=== PATIENT | female | born 1930 | race Caucasian/White ===

== ENCOUNTER 2016-11-08 23:57 | Inpatient (IN) | payer MEDICARE, OTHER ==
[~2016-11-08] VITALS: Ht 167.6 cm; Wt 91.2 kg
[2016-11-09] VITALS (15 sets, daily range): BP systolic 102–156; BP diastolic 42–85
--- OUTSIDE RECORDS SUMMARY | 2016-11-09 00:07 | External Medical Summary Rpt ---
Author Author [employer] Organization [employer] Address Unknown Phone Unavailable Purpose Continuity of Care Document - through 2016
--- OUTSIDE RECORDS SUMMARY | 2016-11-09 00:07 | External Medical Summary Rpt ---
Author Author SONDRA Address Unknown Phone [email or web address] Purpose Continuity of Care Document - through 2016
--- OUTSIDE RECORDS SUMMARY | 2016-11-09 00:07 | External Medical Summary Rpt ---
Author Author SONDRA Address Unknown Phone [email or web address] Purpose Continuity of Care Document - through 2016
--- OUTSIDE RECORDS SUMMARY | 2016-11-09 00:07 | External Medical Summary Rpt ---
Demographics Preferred Language Yakut Marital Status Unknown Mormon Affiliation Unknown Race Unknown Ethnic Group Unknown Author SONDRA Hall Address Unknown Phone Immunization No patient found.
--- OUTSIDE RECORDS SUMMARY | 2016-11-09 00:07 | External Medical Summary Rpt ---
Demographics Preferred Language Urdu Marital Status Unknown Baptism Affiliation Unknown Race Unknown Ethnic Group Unknown Author SONDRA Hall Address Unknown Phone Immunization No patient found.
[2016-11-09] MEDS ORDERED: SPECTRAVITE SE1 EACH PO (00:27)
[2016-11-09] MEDS ORDERED: DIAZEPAM5 MG PO (00:27)
[2016-11-09 00:28] LABS: ARTERIAL PO2 85.8 MMHG (80-100)
[2016-11-09 00:29] LABS: ALLEN'S TEST Y; ARTERIAL ABE 12.7 MMOL/L (-2.4-+2.3); ARTERIAL TCO2 43.2 MMOL/L (23-27); OXYGEN 2
[2016-11-09] MEDS ORDERED: SINGULAIR10 MG PO (00:29)
[2016-11-09] MEDS ORDERED: LISINOPRIL 10MG10 MG PO (00:31)
[2016-11-09] MEDS ORDERED: SIMVASTATIN40 MG PO (00:32)
[2016-11-09] MEDS ORDERED: [UNRECOGNIZED DRUG - CODE] PO (00:33)
--- NOTE | 2016-11-09 00:35 | Emergency Room Report ---
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 N Clinical Suspician of Infection? N Mental Status: 1 - Regular (Normal Baseline) Sepsis Risk:Possible Sepsis Risk Have you (or family members/close friends) recently traveled outside the [place]? N If Yes, where/when: Have you had exposure to infectious disease within the past month? N TB? Other? Specify: Source patient, RN notes reviewed, family, RN/MD Exam Limitations no limitations Comment This is an 85-year-old female patient arriving to the emergency room with shortness of breath for the past 2 days, associated with nonproductive cough. Patient has any shots of breath, denies any chest pain. Symptoms appeared to be worse with exertion. Shows hospitalist on multiple rounds in the past for similar symptoms and diagnosed with chronic obstructive pulmonary disease exacerbation. She appears more lethargic and somewhat confused, per family. ALLERGIES Coded Allergies: No Known Drug Allergies (NKDA) (11/09/16) Home Medications Reported Medications Multivitamin W/Iron, Minerals (Spectravite Senior) 1 EACH PO DAILY LISINOPRIL (Lisinopril) 10 MG PO DAILY Diazepam (Diazepam 5MG) 5 MG PO BID Montelukast Sodium (Singulair) 10 MG PO QHS Simvastatin (Simvastatin 40MG Tab) 40 MG PO DAILY THEOPHYLLINE ANHYDROUS (Beni-24) 200 MG PO BID History Medical History General CAD? No Angina: No AR: No Hypertension? Yes Hyperlipidemia? Yes CHF? Yes DVT? No PE? No COPD? Yes Asthma? Yes Anemia? No GERD? No Gastric ulcers? No GI Bleed? No Hernia? No Thyroid Problems? No Hypothyroidism? No CVA? No Seizures? No Diabetes? No Renal Insuffiency? No End Stage Renal Disease? No UTI? No Stones? No BPH? No GB Disease: No Nephritic Syndrome? No Asplenia? No Hepatitis? No Sickle Cell Disease? No Arthritis? Yes Migraines? No Cataracts? Yes Glaucoma? Yes MRSA? No HIV? No TB? No Anxiety? Yes Depression? No Cancer? No Immunization Hx DT/Tetanus Unknown Surgical Hx Previous Surgery?Y Social History Smoking Hx Smoker: Never Smoker Tobacco: No Are you/the child exposed to second-hand smoke: No Alcohol Alcohol: No Review of Systems All Other Systems Reviewed and Negative Respiratory shortness of breath Physical Exam Vital Signs Vital Signs Date Time Temp Pulse Resp B/P Pulse O2 O2 Flow FiO2 Ox Delivery Rate 11/09 0421 2 11/09 0400 53 20 111/64 98 OXYGEN 11/09 0306 98.1 56 20 115/79 99 OXYGEN 2 11/09 0259 55 11/09 0259 99 OXYGEN 11/09 0251 98.3 55 30 119/60 11/09 0203 98.3 55 30 119/60 99 11/09 0137 55 30 119/60 99 2 11/09 0112 2 11/09 0103 68 30 136/80 100 11/09 0030 86 36 175/100 85 2 11/09 0016 77 11/09 0001 98.3 91 36 156/85 100 2 General Appearance normal appearance, WD/WN, moderate distress Respiratory Status Yes: respiratory distress (mild), trachea midline, chest symmetrical, non tender chest. Lung Sounds bilateral: wheezing. Cardiovascular normal exam, regular rate/rhythm, no peripheral edema, no gallop, no JVD, no murmur, no rub, normal peripheral pulses Gastrointestinal normal bowel sounds, normal exam, non tender, soft, no organomegaly Extremities non-tender, normal range of motion, normal inspection Neurologic alert, dowel maker II-XII nml as tested, normal exam, oriented x 3 Mental status normal mood/affect Skin intact, normal color, warm/dry Medical Decision Making LABS/Meds/Orders Pt receiving controlled substance in ED? No Comment 01:15am- case d/w Dr Nader Love, advised patient's presentation, workup. Dr. Love labile with management so far, including Plavix, heparin, nitrates and aspirin. 01:20am-case d/w Dr Gee covering for Dr Walton, agreeable with admission. Care transferred to Dr. Gee/Dr. Love at this time. I will write temporary, bridge, admission orders as per hospital policy. Upon patient's arrival to the floor unit nurse will contact PCP and dive superintendent in order to obtain full, in patient admission orders. Results/Orders Laboratory Tests 11/09/16 0305: Creatine Kinase 103, CK-MB (CK-2) Rel Index 3.4, CK and CKMB Interp 3.5, Troponin I 0.95 H, Triglycerides 76, Cholesterol 130, LDL Cholesterol 25.8, VLDL Cholesterol 15.2, HDL Cholesterol 89.0 H 11/09/16 0026: ABG pH 7.24 *L, ABG pCO2 (Temp Corrct 96.6 H, ABG pO2 (Temp Correct 85.8, ABG HCO3 40.2 H, ABG Total CO2 43.2 H, ABG O2 Sat (Calculated) 94.7, ABG Base Excess 12.7 H, Darinel Test Y, Blood Gas Comments R/R 11/09/16 001: Hemoglobin A1c 6.6 11/09/1614: TSH 0.85, Free T4 Index 3.8 L, Thyroxine (T4) 4.5 L, T3 Uptake 34 11/09/16 001: Sodium 143, Potassium 4.8, Chloride 101, Carbon Dioxide 43 *H, BUN 26 H, Creatinine 1.0, Estimated Creat Clear 52, Estimated GFR (MDRD) 53 L, Glucose 201 H, Calcium 9.5, Total Bilirubin 0.4, AST 22, ALT 22, Alkaline Phosphatase 74, Creatine Kinase 63, CK and CKMB Interp 3.9 H, Troponin I 0.82 H, Total Protein 7.7, Albumin 3.7, Globulin 4.0 H, Albumin/Globulin Ratio 0.9 L, WBC 10.6, RBC 4.68, Hgb 13.7, Hct 44.5, MCV 95.0, RDW 18.0 H, Plt Count 204, Gran % 77.6, Gran # 8.2 H, Lymphocytes % 17.3, Monocytes % 5.1, Lymphocytes # 1.8, Monocytes # 0.5, PUBS MCHC 30.8 L, MCH 29.3 Current Medication Orders Sig/Felipe Start time Last Medication Dose Route Stop Time Status Admin Ceftriaxone Sodium 1 GM 0100 11/10 010 AC 11/09 Sodium Chloride 50 ML IV 2343 Montelukast Sodium 10 MG QHS 11/09 2099 AC 11/09 PO 2100 Clopidogrel Bisulfate 75 MG DAILY 11/09 09 AC 11/10 PO 0903 Diazepam 5 MG BID 11/09 09 AC 11/10 PO 0902 Enoxaparin Sodium 90 MG BID 11/09 09 AC 11/10 SC 0903 Lisinopril 10 MG DAILY 11/09 09 AC 11/10 PO 0903 Methylprednisolone 60 MG Q12 11/09 09 AC 11/10 Sodium Succinate IV 0903 Sodium Chloride 10 ML PRN PRN 11/09 0015 DC IV 11/10 0005 Orders Procedure Date/time Status ECHO ADULT 11/10 08 Active DIET-NOTHING BY MOUTH 11/09 B Complete CARDIAC ENZYMES 11/09 09 Complete PT ON HOME OXYGEN QUERY NOTICE 11/10 315 Active ADMITTED PT IS ACTUALLY IN BED 11/09 031 Active ARTERIAL BLOOD GAS REQUEST 11/09 030 Active LIPID PROFILE 11/09 030 Complete CARDIAC ENZYMES 11/09 0300 Complete RT BIPAP, Initial Setup/Change 11/09 025 Active RT BIPAP, Monitor/Maintain 11/09 0252 Active Decision to admit 11/09 0150 Active THYROID PANEL 2 (WITH TSH) 11/09 0118 Complete GLYCOHEMOGLOBIN (A1C) 11/09 0118 Complete RT Aerosol Treatment, Provide 11/09 0050 Active RESP THERAPY REQUEST (GENERAL) 11/09 0029 Active ARTERIAL BLOOD GAS REQUEST 11/09 0007 Active ELECTROCARDIOGRAM REQUEST 11/09 0006 Active RT REQUEST DUONEB 11/09 0006 Active IV SALINE LOCK 11/09 0006 Active OXYGEN PER NURSE 11/09 0006 Active 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 11/09 0006 Active TROPONIN I 11/09 0006 Complete CPK 11/09 0006 Complete COMPLETE METABOLIC PANEL 11/09 0006 Complete CKMB 11/09 0006 Complete CBC WITH AUTO DIFF 11/09 0006 Complete ADMIT PATIENT 11/09 UNK Active 12 LEAD EKG-BESSON (INITIAL) 11/09 UNK Active PULSE OXIMETRY REQUEST 11/[address] CHEST W/PE PROTOCOL REQ 11/09 UNK Complete VITAL SIGNS 11/09 UNK Active STITCHER FEEDER 11/09 UNK Active POM NURSE PAULINO SALINAS ORDER 11/09 UNK Active CODE STATUS 11/09 UNK Active PATIENT ACTIVITY ORDER 11/09 UNK Active SPECIALTY CLINIC PHYS CONSULT 11/09 UNK Active CM/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 of ischemic chgs, no ectopy, normal QRS, normal [place], no EKG for comparison, non-spec. ST/Twave chgs, ST elevation, ST depression, LBBB, RBBB, ectopy, abnormal Q waves XRAY/CT/US XRAY/CT/US XRAY chest XR interpretation by discussed w/radiologist Xray Results no infiltrates, normal heart size, normal lung inflation krysten Departure Departure Time of Disposition 0034 Disposition Still a Patient Clinical Impression Primary Impression: CO2 narcosis Secondary Impressions: Acute respiratory acidosis, COPD exacerbation, NSTEMI ( non-ST elevated myocardial infarction) Condition STABLE ED Critical Care Critical Care No at 131
--- NOTE | 2016-11-09 00:35 | Emergency Room Report ---
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 N Clinical Suspician of Infection? N Mental Status: 1 - Regular (Normal Baseline) Sepsis Risk:Possible Sepsis Risk Have you (or family members/close friends) recently traveled outside the [place]? N If Yes, where/when: Have you had exposure to infectious disease within the past month? N TB? Other? Specify: Source patient, RN notes reviewed, family, RN/MD Exam Limitations no limitations Comment This is an 85-year-old female patient arriving to the emergency room with shortness of breath for the past 2 days, associated with nonproductive cough. Patient has any shots of breath, denies any chest pain. Symptoms appeared to be worse with exertion. Shows hospitalist on multiple rounds in the past for similar symptoms and diagnosed with chronic obstructive pulmonary disease exacerbation. She appears more lethargic and somewhat confused, per family. ALLERGIES Coded Allergies: No Known Drug Allergies (NKDA) (11/09/16) Home Medications Reported Medications Multivitamin W/Iron, Minerals (Spectravite Senior) 1 EACH PO DAILY LISINOPRIL (Lisinopril) 10 MG PO DAILY Diazepam (Diazepam 5MG) 5 MG PO BID Montelukast Sodium (Singulair) 10 MG PO QHS Simvastatin (Simvastatin 40MG Tab) 40 MG PO DAILY THEOPHYLLINE ANHYDROUS (Ebni-24) 200 MG PO BID History Medical History General CAD? No Angina: No RI: No Hypertension? Yes Hyperlipidemia? Yes CHF? Yes DVT? No PE? No COPD? Yes Asthma? Yes Anemia? No GERD? No Gastric ulcers? No GI Bleed? No Hernia? No Thyroid Problems? No Hypothyroidism? No CVA? No Seizures? No Diabetes? No Renal Insuffiency? No End Stage Renal Disease? No UTI? No Stones? No BPH? No GB Disease: No Nephritic Syndrome? No Asplenia? No Hepatitis? No Sickle Cell Disease? No Arthritis? Yes Migraines? No Cataracts? Yes Glaucoma? Yes MRSA? No HIV? No TB? No Anxiety? Yes Depression? No Cancer? No Immunization Hx DT/Tetanus Unknown Surgical Hx Previous Surgery?Y Social History Smoking Hx Smoker: Never Smoker Tobacco: No Are you/the child exposed to second-hand smoke: No Alcohol Alcohol: No Review of Systems All Other Systems Reviewed and Negative Respiratory shortness of breath Physical Exam Vital Signs Vital Signs Date Time Temp Pulse Resp B/P Pulse O2 O2 Flow FiO2 Ox Delivery Rate 11/09 0421 2 11/09 0400 53 20 111/64 98 OXYGEN 11/09 0306 98.1 56 20 115/79 99 OXYGEN 2 11/09 0259 55 11/09 0259 99 OXYGEN 11/09 0251 98.3 55 30 119/60 11/09 0203 98.3 55 30 119/60 99 11/09 0137 55 30 119/60 99 2 11/09 0112 2 11/09 0103 68 30 136/80 100 11/09 0030 86 36 175/100 85 2 11/09 0016 77 11/09 0001 98.3 91 36 156/85 100 2 General Appearance normal appearance, WD/WN, moderate distress Respiratory Status Yes: respiratory distress (mild), trachea midline, chest symmetrical, non tender chest. Lung Sounds bilateral: wheezing. 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 No Comment 01:15am- case d/w Dr Nader Love, advised patient's presentation, workup. Dr. Love labile with management so far, including Plavix, heparin, nitrates and aspirin. 01:20am-case d/w Dr Gee covering for Dr Walton, agreeable with admission. Care transferred to Dr. Gee/Dr. Love at this time. I will write temporary, bridge, admission orders as per hospital policy. Upon patient's arrival to the floor unit nurse will contact PCP and assistant surveyor in order to obtain full, in patient admission orders. Results/Orders Laboratory Tests 11/09/16 0305: Creatine Kinase 103, CK-MB (CK-2) Rel Index 3.4, CK and CKMB Interp 3.5, Troponin I 0.95 H, Triglycerides 76, Cholesterol 130, LDL Cholesterol 25.8, VLDL Cholesterol 15.2, HDL Cholesterol 89.0 H 11/09/16 0026: ABG pH 7.24 *L, ABG pCO2 (Temp Corrct 96.6 H, ABG pO2 (Temp Correct 85.8, ABG HCO3 40.2 H, ABG Total CO2 43.2 H, ABG O2 Sat (Calculated) 94.7, ABG Base Excess 12.7 H, Darinel Test Y, Blood Gas Comments R/R 11/09/16 001: Hemoglobin A1c 6.6 11/09/1614: TSH 0.85, Free T4 Index 3.8 L, Thyroxine (T4) 4.5 L, T3 Uptake 34 11/09/16 001: Sodium 143, Potassium 4.8, Chloride 101, Carbon Dioxide 43 *H, BUN 26 H, Creatinine 1.0, Estimated Creat Clear 52, Estimated GFR (MDRD) 53 L, Glucose 201 H, Calcium 9.5, Total Bilirubin 0.4, AST 22, ALT 22, Alkaline Phosphatase 74, Creatine Kinase 63, CK and CKMB Interp 3.9 H, Troponin I 0.82 H, Total Protein 7.7, Albumin 3.7, Globulin 4.0 H, Albumin/Globulin Ratio 0.9 L, WBC 10.6, RBC 4.68, Hgb 13.7, Hct 44.5, MCV 95.0, RDW 18.0 H, Plt Count 204, Gran % 77.6, Gran # 8.2 H, Lymphocytes % 17.3, Monocytes % 5.1, Lymphocytes # 1.8, Monocytes # 0.5, PUBS MCHC 30.8 L, MCH 29.3 Current Medication Orders Sig/Felipe Start time Last Medication Dose Route Stop Time Status Admin Ceftriaxone Sodium 1 GM 0100 11/10 010 AC 11/09 Sodium Chloride 50 ML IV 2343 Montelukast Sodium 10 MG QHS 11/09 2099 AC 11/09 PO 2100 Clopidogrel Bisulfate 75 MG DAILY 11/09 09 AC 11/10 PO 0903 Diazepam 5 MG BID 11/09 09 AC 11/10 PO 0902 Enoxaparin Sodium 90 MG BID 11/09 09 AC 11/10 SC 0903 Lisinopril 10 MG DAILY 11/09 09 AC 11/10 PO 0903 Methylprednisolone 60 MG Q12 11/09 09 AC 11/10 Sodium Succinate IV 0903 Sodium Chloride 10 ML PRN PRN 11/09 0015 DC IV 11/10 0005 Orders Procedure Date/time Status ECHO ADULT 11/10 08 Active DIET-NOTHING BY MOUTH 11/09 B Complete CARDIAC ENZYMES 11/09 09 Complete PT ON HOME OXYGEN QUERY NOTICE 11/10 315 Active ADMITTED PT IS ACTUALLY IN BED 11/09 031 Active ARTERIAL BLOOD GAS REQUEST 11/09 030 Active LIPID PROFILE 11/09 030 Complete CARDIAC ENZYMES 11/09 0300 Complete RT BIPAP, Initial Setup/Change 11/09 025 Active RT BIPAP, Monitor/Maintain 11/09 0252 Active Decision to admit 11/09 0150 Active THYROID PANEL 2 (WITH TSH) 11/09 0118 Complete GLYCOHEMOGLOBIN (A1C) 11/09 0118 Complete RT Aerosol Treatment, Provide 11/09 0050 Active RESP THERAPY REQUEST (GENERAL) 11/09 0029 Active ARTERIAL BLOOD GAS REQUEST 11/09 0007 Active ELECTROCARDIOGRAM REQUEST 11/09 0006 Active RT REQUEST DUONEB 11/09 0006 Active IV SALINE LOCK 11/09 0006 Active OXYGEN PER NURSE 11/09 0006 Active LEAD ASSISTANT MANAGER 11/09 0006 Active TROPONIN I 11/09 0006 Complete CPK 11/09 0006 Complete COMPLETE METABOLIC PANEL 11/09 0006 Complete CKMB 11/09 0006 Complete CBC WITH AUTO DIFF 11/09 0006 Complete ADMIT PATIENT 11/09 UNK Active 12 LEAD EKG-BESSON (INITIAL) 11/09 UNK Active PULSE OXIMETRY REQUEST 11/[address] CHEST W/PE PROTOCOL REQ 11/09 UNK Complete VITAL SIGNS 11/09 UNK Active INSTITUTION DIRECTOR 11/09 UNK Active POM NURSE PAULINO SALINAS ORDER 11/09 UNK Active CODE STATUS 11/09 UNK Active PATIENT ACTIVITY ORDER 11/09 UNK Active SPECIALTY CLINIC PHYS CONSULT 11/09 UNK Active 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 of ischemic chgs, no ectopy, normal QRS, normal [place], no EKG for comparison, non-spec. ST/Twave chgs, ST elevation, ST depression, LBBB, RBBB, ectopy, abnormal Q waves XRAY/CT/US XRAY/CT/US XRAY chest XR interpretation by discussed w/radiologist Xray Results no infiltrates, normal heart size, normal lung inflation krysten Departure Departure Time of Disposition 0034 Disposition Still a Patient Clinical Impression Primary Impression: CO2 narcosis Secondary Impressions: Acute respiratory acidosis, COPD exacerbation, NSTEMI ( non-ST elevated myocardial infarction) Condition STABLE ED Critical Care Critical Care No at 1318
[2016-11-09 00:41] LABS: HEMOGLOBIN 13.7 g/dL (12.2-16.2)
[2016-11-09 00:42] LABS: LYMPH # 1.8 K/mm3 (0.7-4.5); LYMPH % 17.3 % (10-50.0)
--- OUTSIDE RECORDS SUMMARY | 2016-11-09 01:06 | External Medical Summary Rpt ---
Author Author , SONDRA AMARO Address Unknown Phone [email or web address] Purpose Continuity of Care Document - 11-09-2016 through 2016 Results Labs Lab Lab Date Result Refere Interp Status Commen Order Detail nces retati t Range on Gas panel in Arterial blood (11-09-2016 00:26) Arteria Y complet l 017 ed patency 00:26 Wrist artery --pre arteria l punctur e SOURCE R/R complet 017 ed 00:26
--- OUTSIDE RECORDS SUMMARY | 2016-11-09 01:06 | External Medical Summary Rpt ---
Author Author , SONDRA AMARO Address Unknown Phone [email or web address] Purpose Continuity of Care Document - 11-09-2016 through 2016 Results Labs Lab Lab Date Result Refere Interp Status Commen Order Detail nces retati t Range on Gas panel in Arterial blood (11-09-2016 00:26) Arteria Y complet l 017 ed patency 00:26 Wrist artery --pre arteria l punctur e SOURCE R/R complet 017 ed 00:26
--- OUTSIDE RECORDS SUMMARY | 2016-11-09 01:07 | External Medical Summary Rpt ---
Demographics Preferred Language Cambodian Marital Status Unknown Synagogue Affiliation Unknown Race Unknown Ethnic Group Unknown Author Author SONDRA Address Unknown Phone Immunization Unable to retrieve immunization data due to connection failure with Immunization Registry. Please try again later.
--- OUTSIDE RECORDS SUMMARY | 2016-11-09 01:07 | External Medical Summary Rpt ---
Demographics Preferred Language South African Marital Status Unknown Moravian Affiliation Unknown Race Unknown Ethnic Group Unknown Author Author SONDRA Address Unknown Phone Immunization Unable to retrieve immunization data due to connection failure with Immunization Registry. Please try again later.
--- OUTSIDE RECORDS SUMMARY | 2016-11-09 01:08 | External Medical Summary Rpt ---
Author Author SONDRA Ronnell, [employer] Organization [employer] Address Unknown Phone Unavailable Results Gas panel in Arterial blood Observa Value Referen Units Interpr Notes Date tion ce etation Range Base -2.4-+2.3 MMOL/L High No Nov 09 excess in informati 2017 Arterial on in 12:26 AM blood source data Arteria Y No No No No Nov 09 l informa informa informa informa 2016 patency tion in tion in tion in tion in 12:26 Wrist source source source source AM artery data data data data --pre arteria l punctur e Bicarbona 22.0 - MMOL/L High No Nov 09 te 26.0 informati 2016 [Moles/vo on in 12:26 AM lume] in source Arterial data blood Oxygen No No No No Nov 09 content informati informati informati informati 2017 in on in on in on in on in 12:26 AM Arterial source source source source blood data data data data Carbon 35.0 - MMHG High Nov 09 dioxide 45.0 2016 [Partial CRITICAL 12:26 AM pressure] RESULTS in Arterial RESU blood LTS CALLED TO: DR MCELROY 11/09/16 0028 Austin Durbin pH of 7.35 - MMOL/L Low alert No Nov 09 Arterial 7.45 informati 2017 blood on in 12:26 AM source data Oxygen 80 - 100 MMHG Normal No Nov 09 [Partial informati 2017 pressure] on in 12:26 AM in source Arterial data blood Oxygen 90 - 100 % Normal No Nov 09 saturatio informati 2017 n.calcula on in 12:26 AM john from source oxygen data partial pressure in Arterial blood SOURCE R/R No No No No Nov 09 informa informa informa informa 2017 tion in tion in tion in tion in 12:26 source source source source AM data data data data Carbon 23 - 27 MMOL/L High No Nov 09 dioxide, informati 2017 total on in 12:26 AM [Moles/vo source lume] in data Arterial blood Creatine kinase.MB [Mass/volume] in Serum or Plasma Observa Value Referen Units Interpr Notes Date tion ce etation Range Creatine 0.0 - 3.6 ng/mL High No Nov 09 kinase.MB informati 2017 on in 12:15 AM [Mass/vol source ume] in data Serum or Plasma Comprehensive metabolic 2000 panel in Serum or Plasma Observa Value Referen Units Interpr Notes Date tion ce etation Range Albumin/G 1.1 - 1.8 No Low No Nov 09 lobulin informati informati 2016 [Mass on in on in 12:15 AM ratio] in source source Serum or data data Plasma Albumin 3.4 - 5.0 gm/dL Normal No Nov 09 [Mass/vol informati 2017 ume] in on in 12:15 AM Serum or source Plasma data Alkaline 46 - 116 U/L Normal No Nov 09 phosphata informati 2016 se on in 12:15 AM [Enzymati source c data activity/ volume] in Serum or Plasma Bilirubin 0.2 - 1.0 mg/dL Normal No Nov 09 .total informati 2016 [Mass/vol on in 12:15 AM ume] in source Serum or data Plasma Urea 7 - 18 mg/dL High No Nov 09 nitrogen informati 2016 [Mass/vol on in 12:15 AM ume] in source Serum or data Plasma Calcium 8.5 - mg/dL Normal No Nov 09 [Mass/vol 10.1 informati 2016 ume] in on in 12:15 AM Serum or source Plasma data Chloride 98 - 107 mmoL/L Normal No Nov 09 [Moles/vo informati 2017 lume] in on in 12:15 AM Serum or source Plasma data Carbon 21.0 - mmoL/L High Nov 09 dioxide, 32.0 alert NOTIFICAT 2017 total ION 12:15 AM [Moles/vo RESULT lume] in 11/09 Serum or / 0102 Plasma Ruby Leonardo Creatinin 0.55 - mg/dL Normal No Nov 09 e 1.02 informati 2017 [Mass/vol on in 12:15 AM ume] in source Serum or data Plasma Creatinin 50 - 200 ML/MIN Normal No Nov 09 e renal informati 2017 clearance on in 12:15 AM source predicted data by Cockcroft -Gault formula Estimated 59- ML/MIN Low REFERENCE Nov 09 RANGE: 2017 glomerula >60 12:15 AM r ML/MIN/1. filtratio 73 SQUARE n rate METERSIf (GF this patient is -A merican, then multiply theresult by 1.210. Globulin 1.3 - 3.2 gm/dL High No Nov 09 [Mass/vol informati 2016 ume] in on in 12:15 AM Serum source data Glucose 74 - 106 mg/dL High No Nov 09 [Mass/vol informati 2017 ume] in on in 12:15 AM Serum or source Plasma data Potassium 3.5 - 5.1 mmoL/L Normal No Nov 09 inform2016 [Moles/vo on in 12:15 AM lume] in source Serum or data Plasma Sodium 136 - 145 mmoL/L Normal No Nov 09 [Moles/vo informati 2016 lume] in on in 12:15 AM Serum or source Plasma data Aspartate 15 - 37 U/L Normal No Nov 09 inform2016 aminotran on in 12:15 AM sferase source [Enzymati data c activity/ volume] in Serum or Plasma Alanine 12 - 78 U/L Normal No Nov 09 aminotran inform2016 sferase on in 12:15 AM [Enzymati source c data activity/ volume] in Serum or Plasma Protein 6.4 - 8.2 gm/dL Normal No Nov 09 [Mass/vol informati 2016 ume] in on in 12:15 AM Serum or source Plasma data Creatine kinase [Enzymatic activity/volume] in Serum or Plasma Observa Value Referen Units Interpr Notes Date tion ce etation Range Creatine 26 - 192 U/L Normal No Nov 09 kinase informati 2016 [Enzymati on in 12:15 AM c source activity/ data volume] in Serum or Plasma Troponin I.cardiac [Mass/volume] in Serum or Plasma Observa Value Referen Units Interpr Notes Date tion ce etation Range Troponin 0.00 - ng/mL High Nov 09 I.cardiac 0.06 2017 CRITICAL 12:15 AM [Mass/vol RESULTS ume] in Serum or RESU Plasma LTS CALLED TO: Doug ORLANDO TECH11/09 0103 Ruby Leonardo hn> 0.5 IS CONSISTEN T WITH MYOCARDIA L ISCHEMIA OR INFARCTIO N Creatine kinase.MB [Mass/volume] in Serum or Plasma Observa Value Referen Units Interpr Notes Date tion ce etation Range Creatine 0.0 - 3.6 ng/mL High No Nov 09 kinase.MB informati 2017 on in 12:15 AM [Mass/vol source ume] in data Serum or Plasma Comprehensive metabolic 2000 panel in Serum or Plasma Observa Value Referen Units Interpr Notes Date tion ce etation Range Albumin/G 1.1 - 1.8 No Low No Nov 09 lobulin informati informati 2016 [Mass on in on in 12:15 AM ratio] in source source Serum or data data Plasma Albumin 3.4 - 5.0 gm/dL Normal No Nov 09 [Mass/vol informati 2017 ume] in on in 12:15 AM Serum or source Plasma data Alkaline 46 - 116 U/L Normal No Nov 09 phosphata informati 2016 se on in 12:15 AM [Enzymati source c data activity/ volume] in Serum or Plasma Bilirubin 0.2 - 1.0 mg/dL Normal No Nov 09 .total informati 2016 [Mass/vol on in 12:15 AM ume] in source Serum or data Plasma Urea 7 - 18 mg/dL High No Nov 09 nitrogen informati 2016 [Mass/vol on in 12:15 AM ume] in source Serum or data Plasma Calcium 8.5 - mg/dL Normal No Nov 09 [Mass/vol 10.1 informati 2017 ume] in on in 12:15 AM Serum or source Plasma data Chloride 98 - 107 mmoL/L Normal No Nov 09 [Moles/vo informati 2017 lume] in on in 12:15 AM Serum or source Plasma data Carbon 21.0 - mmoL/L High Nov 09 dioxide, 32.0 alert NOTIFICAT 2017 total ION 12:15 AM [Moles/vo RESULT lume] in 11/09 Serum or 101 Plasma Ruby Leonardo hn Creatinin 0.55 - mg/dL Normal No Nov 09 e 1.02 informati 2017 [Mass/vol on in 12:15 AM ume] in source Serum or data Plasma Creatinin 50 - 200 ML/MIN Normal No Nov 09 e renal informati 2017 clearance on in 12:15 AM source predicted data by Cockcroft -Gault formula Estimated 59- ML/MIN Low REFERENCE Nov 09 RANGE: 2017 glomerula >60 12:15 AM r ML/MIN/1. filtratio 73 SQUARE n rate METERSIf (GF this patient is -A merican, then multiply theresult by 1.210. Globulin 1.3 - 3.2 gm/dL High No Nov 09 [Mass/vol informati 2016 ume] in on in 12:15 AM Serum source data Glucose 74 - 106 mg/dL High No Nov 09 [Mass/vol informati 2017 ume] in on in 12:15 AM Serum or source Plasma data Potassium 3.5 - 5.1 mmoL/L Normal No Nov 09 inform2016 [Moles/vo on in 12:15 AM lume] in source Serum or data Plasma Sodium 136 - 145 mmoL/L Normal No Nov 09 [Moles/vo informati 2016 lume] in on in 12:15 AM Serum or source Plasma data Aspartate 15 - 37 U/L Normal No Nov 09 inform2016 aminotran on in 12:15 AM sferase source [Enzymati data c activity/ volume] in Serum or Plasma Alanine 12 - 78 U/L Normal No Nov 09 aminotran inform2016 sferase on in 12:15 AM [Enzymati source c data activity/ volume] in Serum or Plasma Protein 6.4 - 8.2 gm/dL Normal No Nov 09 [Mass/vol informati 2016 ume] in on in 12:15 AM Serum or source Plasma data Creatine kinase [Enzymatic activity/volume] in Serum or Plasma Observa Value Referen Units Interpr Notes Date tion ce etation Range Creatine 26 - 192 U/L Normal No Nov 09 kinase informati 2016 [Enzymati on in 12:15 AM c source activity/ data volume] in Serum or Plasma Troponin I.cardiac [Mass/volume] in Serum or Plasma Observa Value Referen Units Interpr Notes Date tion ce etation Range Troponin 0.00 - ng/mL High Nov 09 I.cardiac 0.06 2017 CRITICAL 12:15 AM [Mass/vol RESULTS ume] in Serum or RESU Plasma LTS CALLED TO: Doug ORLANDO TECH11/09 0103 Ruby Leonardo hn> 0.5 IS CONSISTEN T WITH MYOCARDIA L ISCHEMIA OR INFARCTIO N CBC W Auto Differential panel in Blood Observa Value Referen Units Interpr Notes Date tion ce etation Range Granulocy 1.8 - 7.8 K/mm3 High No Nov 09 iván inform2016 [#/volume on in 12:15 AM ] in source Blood by data Automated count Granulocy 37.0 - % Normal No Nov 09 iván/100 80.0 2016 leukocyte on in 12:15 AM s in source Blood by data Automated count Hematocri 37.0 - % Normal No Nov 09 t [Volume 47.0 ati 2016 on in 12:15 AM Fraction] source of Blood data Hemoglobi 12.2 - g/dL Normal No Nov 09 n 16.2 informati 2016 [Mass/vol on in 12:15 AM ume] in source Blood data Lymphocyt 0.7 - 4.5 K/mm3 Normal No Nov 09 es informati 2016 [#/volume on in 12:15 AM ] in source Unspecifi data ed specimen by Automated count Lymphocyt 10 - 50.0 % Normal No Nov 09 es inform2016 [#/volume on in 12:15 AM ] in source Unspecifi data ed specimen by Automated count Erythrocy 27 - 31.2 pg Normal No Nov 09 te mean 2016 corpuscul on in 12:15 AM ar source hemoglobi data n [Entitic mass] Erythrocy 31.8 - g/dl Low No Nov 09 te mean 35.4 2016 corpuscul on in 12:15 AM ar source hemoglobi data n concentra tion [Mass/vol ume] by Automated count Erythrocy 82.2 - fL Normal No Nov 09 te mean 97.8 2016 corpuscul on in 12:15 AM ar volume source [Entitic data volume] by Automated count Monocytes 0.1 - 1.0 K/mm3 Normal No Nov 092016 [#/volume on in 12:15 AM ] in source Blood by data Automated count Monocytes 1.7 - 9.3 % Normal No Nov 09 / informati 2016 leukocyte on in 12:15 AM s in source Blood by data Automated count Platelets 142 - 424 K/mm3 Normal No Nov 092016 [#/volume on in 12:15 AM ] in source Blood data Erythrocy 4.2 - 5.4 M/mm3 Normal No Nov 09 iván informati 2016 [#/volume on in 12:15 AM ] in source Amniotic data fluid Erythrocy 11.5 - % High No Nov 09 te 17.5 informati 2016 distribut on in 12:15 AM ion width source [Entitic data volume] by Automated count Leukocyte 4.8 - K/mm3 Normal No Nov 09 s 10.8 informati 2016 [#/volume on in 12:15 AM ] in source Blood data
--- OUTSIDE RECORDS SUMMARY | 2016-11-09 01:08 | External Medical Summary Rpt ---
[...] - 5.4 M/mm3 Normal No Nov 09 iávn informati 2016 [#/volume on in 12:15 AM [...]
[2016-11-09 01:57] LABS: FREE THYROXIN INDEX 3.8 ug/dl (5.93-13.13)
[2016-11-09 06:28] LABS: ARTERIAL ABE 13.4 MMOL/L (-2.4-+2.3); ARTERIAL PO2 90.3 MMHG (80-100); ARTERIAL TCO2 41.2 MMOL/L (23-27)
[2016-11-09 06:29] LABS: ALLEN'S TEST ACCEPTABLE; OXYGEN 40; PRESSURE SUPPORT 14; VENT RATE 18
--- NOTE | 2016-11-09 07:22 | RADIOLOGY REPORT PS360 ---
CHEST-PORTABLE HISTORY: dyspnea ORDERING PHYSICIAN: Erasto Watlon MD PATIENT AGE: 85 years COMPARISON: None available FINDINGS: Study is limited with low lung volumes and motion artifact. There is cardiomegaly. Increased density is present in both lung bases consistent with atelectasis or infiltrate slightly greater on the right. Possible small right effusion. IMPRESSION: Limited study with bibasilar airspace disease slightly greater on the right with possible small right effusion
--- NOTE | 2016-11-09 09:37 | PHARMACY CLINIC NOTE ---
Patient Demographics Patient Demographics Admission date: 11/09/16 Date: 11/09/16 Time: 0937 Allergies Coded Allergies: No Known Drug Allergies (NKDA) (11/09/16) HEIGHT- FT: 5 IN: 6.00 K.830 VTE General Information Labs: Laboratory Tests 11/09 0015 Hematology Hgb (12.2 - 16.2 g/dL) 13.7 Hct (37.0 - 47.0 %) 44.5 Plt Count (142 - 424 K/mm3) 204 Disclaimer The following section includes nursing documentation that has been pulled in for pharmacy review. Patient's VTE score: 4 Patient's VTE Risk: LOW RISK Clinical trial participant? No VTE prophylaxis [id number] VTE prophylaxis ordered? Yes Type of prophylaxis/treatment: PAULINO Haley at 0937
--- NOTE | 2016-11-09 11:04 | HISTORY AND PHYSICAL REPORT ---
History and Physical (FCA) Date of admission: 11/09/16 Chief complaint: Difficulty breathing History: History of Present Illness: 85 year old female, currently visiting family in [facility], came to [facility] ER with difficulty breathing last night. Patient reportedly has COPD and is dependent on supplemental O2. She had been sick for about 2 days with cough and congestion and may have increased the rate of O2 she was receiving. In the ER she was found to have CO2 narcosis and acute respiratory acidosis. She was placed on Bipap and admitted for further evaluation. This morning patient has been weaned off of Bipap and is preparing to have a CT of the chest. No family is present during this exam. She does not remember getting sick last night but does want to talk about insects in her apartment in [place] and her desire to have an tile and marble installer called, but her landlord has refused to comply with her wishes. She is very conversant but seems to have some limited memory. She states she has a doctor in [place] that makes home visits but can't remember their name. Most of the information for this H&P is gathered from the ER note. Past Medical History: Medical History: CAD? No Angina: No [place]: No Hypertension? Yes Hyperlipidemia? Yes CHF? Yes DVT? No PE? No COPD? Yes Asthma? Yes Anemia? No GERD? No Gastric ulcers? No GI Bleed? No Hernia? No Thyroid Problems? No Hypothyroidism? No CVA? No Seizures? No Diabetes? No Renal Insuffiency? No UTI? No Stones? No BPH? No GB Disease: No Nephritic Syndrome? No Asplenia? No Hepatitis? No Sickle Cell Disease? No Arthritis? Yes Migraines? No Cataracts? Yes Glaucoma? Yes MRSA? No HIV? No TB? No Anxiety? Yes Depression? No Cancer? No Surgical history: Previous Surgery? Unknown Medications: Reported Medications Multivitamin W/Iron, Minerals (Spectravite Senior) 1 EACH PO DAILY Diazepam (Diazepam 5MG) 5 MG PO BID Montelukast Sodium (Singulair) 10 MG PO QHS LISINOPRIL (Lisinopril) 10 MG PO DAILY Simvastatin (Simvastatin 40MG Tab) 40 MG PO DAILY THEOPHYLLINE ANHYDROUS (Beni-24) 200 MG PO BID Allergies: Coded Allergies: No Known Drug Allergies (NKDA) (11/09/16) Family History: Family history: Postive for: unknown. Social History: Smoking Hx Tobacco: No Smoker: Never Smoker Type: N/A Packs/day: N/A Are you exposed to second hand No Alcohol: Alcohol: No Hx of Drug Use: Drug Use? No Review of Systems: Patient unresponsive? No Constitutional Positive for: weak. ENT No: nose bleed. Cardiovascular No: chest pain. Respiratory Positive for: shortness of air. GI No: diarrhea. (female) No: frequency. Skin No: rash. Eyes No: vision loss. Physical Exam: Vital signs: 1ST Vital Signs Result Date Time Pulse Ox 100 11/09 2016 B/P 156/85 11/09 2016 O2 Flow Rate 2 11/09 2016 Temp 98.3 11/09 2016 Pulse 91 11/09 2016 Resp 36 11/09 2016 O2 Delivery OXYGEN 11/09 0259 Exam: General appearance: alert, awake, no acute distress ENT: mucous membranes moist Neck: supple Cardiovascular: regular rate & rhythm Respiratory: diminished breath sounds, wheezing (faint) ABD: normal bowel sounds, soft, no tenderness, obese Skin: warm Lab data: Labs: Laboratory Tests 11/09/16 0900: Creatine Kinase 76, CK-MB (CK-2) Rel Index 3.7, CK and CKMB Interp 2.8, Troponin I 0.68 H 11/09/16 0655: POC Glucose 131 H 11/09/16 0610: ABG pH 7.35, ABG pCO2 (Temp Corrct 72.6 H, ABG pO2 (Temp Correct 90.3, ABG HCO3 39.0 H, ABG Total CO2 41.2 H, ABG O2 Sat (Calculated) 96.5, ABG Base Excess 13.4 H, Darinel Test ACCEPTABLE, Vent Rate 18, POC PEEP 7, Pressure Support 14, Blood Gas Comments LEFT RADIAL 11/09/16 0305: Creatine Kinase 103, CK-MB (CK-2) Rel Index 3.4, CK and CKMB Interp 3.5, Troponin I 0.95 H, Triglycerides 76, Cholesterol 130, LDL Cholesterol 25.8, VLDL Cholesterol 15.2, HDL Cholesterol 89.0 H 11/09/16 0026: ABG pH 7.24 *L, ABG pCO2 (Temp Corrct 96.6 H, ABG pO2 (Temp Correct 85.8, ABG HCO3 40.2 H, ABG Total CO2 43.2 H, ABG O2 Sat (Calculated) 94.7, ABG Base Excess 12.7 H, Darinel Test Y, Blood Gas Comments R/R 11/09/16 0015: Hemoglobin A1c 6.6 11/09/16 0015: TSH 0.85, Free T4 Index 3.8 L, Thyroxine (T4) 4.5 L, T3 Uptake 34 11/09/16 0015: Sodium 143, Potassium 4.8, Chloride 101, Carbon Dioxide 43 *H, BUN 26 H, Creatinine 1.0, Estimated Creat Clear 52, Estimated GFR (MDRD) 53 L, Glucose 201 H, Calcium 9.5, Total Bilirubin 0.4, AST 22, ALT 22, Alkaline Phosphatase 74, Creatine Kinase 63, CK and CKMB Interp 3.9 H, Troponin I 0.82 H, Total Protein 7.7, Albumin 3.7, Globulin 4.0 H, Albumin/Globulin Ratio 0.9 L, WBC 10.6, RBC 4.68, Hgb 13.7, Hct 44.5, MCV 95.0, RDW 18.0 H, Plt Count 204, Gran % 77.6, Gran # 8.2 H, Lymphocytes % 17.3, Monocytes % 5.1, Lymphocytes # 1.8, Monocytes # 0.5, PUBS MCHC 30.8 L, MCH 29.3 Radiology results: Results: No EKG is available for review at this time. Diagnosis(es): 1. CO2 narcosis Status: Acute 2. Acute respiratory acidosis Status: Acute 3. COPD exacerbation Status: Acute 4. NSTEMI (non-ST elevated myocardial infarction) Status: Acute 5. Elevated troponin Status: Acute 6. COPD (chronic obstructive pulmonary disease) Status: Chronic 7. HTN (hypertension) Status: Chronic 8. Hyperlipidemia Status: Chronic 9. Renal insufficiency Plan: Patient admitted with working diagnosis of CO2 narcosis with resp. acidosis due to COPD exacerbation. Her Troponin is also elevated and she was diagnosed with a non STEMI. She is have a CT of the chest today and an ECHO was ordered after the ER doctor spoke to Dr. Love. Continue current treatment at this time. Patient is off of Bi-pap treatment now, her CO2 is lower on her most recent ABG. at 1110
--- NOTE | 2016-11-09 11:04 | HISTORY AND PHYSICAL REPORT ---
History and Physical (FCA) Date of admission: 11/09/16 Chief complaint: Difficulty breathing History: History of Present Illness: 85 year old female, currently visiting family in [facility], came to [facility] ER with difficulty breathing last night. Patient reportedly has COPD and is dependent on supplemental O2. She had been sick for about 2 days with cough and congestion and may have increased the rate of O2 she was receiving. In the ER she was found to have CO2 narcosis and acute respiratory acidosis. She was placed on Bipap and admitted for further evaluation. This morning patient has been weaned off of Bipap and is preparing to have a CT of the chest. No family is present during this exam. She does not remember getting sick last night but does want to talk about insects in her apartment in [place] and her desire to have an concrete bucket loader called, but her landlord has refused to comply with her wishes. She is very conversant but seems to have some limited memory. She states she has a doctor in [place] that makes home visits but can't remember their name. Most of the information for this H&P is gathered from the ER note. Past Medical History: Medical History: CAD? No Angina: No [place]: No Hypertension? Yes Hyperlipidemia? Yes CHF? Yes DVT? No PE? No COPD? Yes Asthma? Yes Anemia? No GERD? No Gastric ulcers? No GI Bleed? No Hernia? No Thyroid Problems? No Hypothyroidism? No CVA? No Seizures? No Diabetes? No Renal Insuffiency? No UTI? No Stones? No BPH? No GB Disease: No Nephritic Syndrome? No Asplenia? No Hepatitis? No Sickle Cell Disease? No Arthritis? Yes Migraines? No Cataracts? Yes Glaucoma? Yes MRSA? No HIV? No TB? No Anxiety? Yes Depression? No Cancer? No Surgical history: Previous Surgery? Unknown Medications: Reported Medications Multivitamin W/Iron, Minerals (Spectravite Senior) 1 EACH PO DAILY Diazepam (Diazepam 5MG) 5 MG PO BID Montelukast Sodium (Singulair) 10 MG PO QHS LISINOPRIL (Lisinopril) 10 MG PO DAILY Simvastatin (Simvastatin 40MG Tab) 40 MG PO DAILY THEOPHYLLINE ANHYDROUS (Beni-24) 200 MG PO BID Allergies: Coded Allergies: No Known Drug Allergies (NKDA) (11/09/16) Family History: Family history: Postive for: unknown. Social History: Smoking Hx Tobacco: No Smoker: Never Smoker Type: N/A Packs/day: N/A Are you exposed to second hand No Alcohol: Alcohol: No Hx of Drug Use: Drug Use? No Review of Systems: Patient unresponsive? No Constitutional Positive for: weak. ENT No: nose bleed. Cardiovascular No: chest pain. Respiratory Positive for: shortness of air. GI No: diarrhea. (female) No: frequency. Skin No: rash. Eyes No: vision loss. Physical Exam: Vital signs: 1ST Vital Signs Result Date Time Pulse Ox 100 11/09 2016 B/P 156/85 11/09 2016 O2 Flow Rate 2 11/09 2016 Temp 98.3 11/09 2016 Pulse 91 11/09 2016 Resp 36 11/09 2016 O2 Delivery OXYGEN 11/09 0259 Exam: General appearance: alert, awake, no acute distress ENT: mucous membranes moist Neck: supple Cardiovascular: regular rate & rhythm Respiratory: diminished breath sounds, wheezing (faint) ABD: normal bowel sounds, soft, no tenderness, obese Skin: warm Lab data: Labs: Laboratory Tests 11/09/16 0900: Creatine Kinase 76, CK-MB (CK-2) Rel Index 3.7, CK and CKMB Interp 2.8, Troponin I 0.68 H 11/09/16 0655: POC Glucose 131 H 11/09/16 0610: ABG pH 7.35, ABG pCO2 (Temp Corrct 72.6 H, ABG pO2 (Temp Correct 90.3, ABG HCO3 39.0 H, ABG Total CO2 41.2 H, ABG O2 Sat (Calculated) 96.5, ABG Base Excess 13.4 H, Darinel Test ACCEPTABLE, Vent Rate 18, POC PEEP 7, Pressure Support 14, Blood Gas Comments LEFT RADIAL 11/09/16 0305: Creatine Kinase 103, CK-MB (CK-2) Rel Index 3.4, CK and CKMB Interp 3.5, Troponin I 0.95 H, Triglycerides 76, Cholesterol 130, LDL Cholesterol 25.8, VLDL Cholesterol 15.2, HDL Cholesterol 89.0 H 11/09/16 0026: ABG pH 7.24 *L, ABG pCO2 (Temp Corrct 96.6 H, ABG pO2 (Temp Correct 85.8, ABG HCO3 40.2 H, ABG Total CO2 43.2 H, ABG O2 Sat (Calculated) 94.7, ABG Base Excess 12.7 H, Darinel Test Y, Blood Gas Comments R/R 11/09/16 0015: Hemoglobin A1c 6.6 11/09/16 0015: TSH 0.85, Free T4 Index 3.8 L, Thyroxine (T4) 4.5 L, T3 Uptake 34 11/09/16 0015: Sodium 143, Potassium 4.8, Chloride 101, Carbon Dioxide 43 *H, BUN 26 H, Creatinine 1.0, Estimated Creat Clear 52, Estimated GFR (MDRD) 53 L, Glucose 201 H, Calcium 9.5, Total Bilirubin 0.4, AST 22, ALT 22, Alkaline Phosphatase 74, Creatine Kinase 63, CK and CKMB Interp 3.9 H, Troponin I 0.82 H, Total Protein 7.7, Albumin 3.7, Globulin 4.0 H, Albumin/Globulin Ratio 0.9 L, WBC 10.6, RBC 4.68, Hgb 13.7, Hct 44.5, MCV 95.0, RDW 18.0 H, Plt Count 204, Gran % 77.6, Gran # 8.2 H, Lymphocytes % 17.3, Monocytes % 5.1, Lymphocytes # 1.8, Monocytes # 0.5, PUBS MCHC 30.8 L, MCH 29.3 Radiology results: Results: No EKG is available for review at this time. Diagnosis(es): 1. CO2 narcosis Status: Acute 2. Acute respiratory acidosis Status: Acute 3. COPD exacerbation Status: Acute 4. NSTEMI (non-ST elevated myocardial infarction) Status: Acute 5. Elevated troponin Status: Acute 6. COPD (chronic obstructive pulmonary disease) Status: Chronic 7. HTN (hypertension) Status: Chronic 8. Hyperlipidemia Status: Chronic 9. Renal insufficiency Plan: Patient admitted with working diagnosis of CO2 narcosis with resp. acidosis due to COPD exacerbation. Her Troponin is also elevated and she was diagnosed with a non STEMI. She is have a CT of the chest today and an ECHO was ordered after the ER doctor spoke to Dr. Love. Continue current treatment at this time. Patient is off of Bi-pap treatment now, her CO2 is lower on her most recent ABG. at 1110
--- NOTE | 2016-11-09 15:43 | RADIOLOGY REPORT PS360 ---
CTA-CHEST HISTORY: Dyspnea, shortness of breath DYSPNEA ORDERING PHYSICIAN: Erasto Walton MD PATIENT AGE: 85 years TECHNIQUE: Helical acquisition obtained following the bolus administration of 60 mL of Isovue 370 followed by a saline bolus. Axial, sagittal, and coronal reformatted images are generated and reviewed. COMPARISON: None FINDINGS: There is no evidence of pulmonary embolus. No evidence of aortic aneurysm. There are diffuse coronary artery calcifications consistent with coronary artery disease with cardiomegaly. No mediastinal or hilar mass. Left hemidiaphragm is elevated. There is consolidation/volume loss within the left lung base posteriorly. There are trace bilateral pleural effusions. Upper abdominal images are unremarkable. There is spondylosis of the thoracic spine. IMPRESSION: 1. No evidence of pulmonary this. 2. Elevated left hemidiaphragm with left basilar consolidation/volume loss. 3. Coronary artery disease with mild cardiomegaly
[2016-11-10] VITALS (21 sets, daily range): BP systolic 95–170; BP diastolic 42–72
[2016-11-10 05:44] LABS: HEMOGLOBIN 13.8 g/dL (12.2-16.2)
[2016-11-10 05:45] LABS: LYMPH % 7.5 % (10-50.0)
[2016-11-10 05:58] LABS: NEUTROPHILS 79 % (42-76)
--- NOTE | 2016-11-10 09:07 | ACUTE CARE PROGRESS NOTE (QUA) ---
Progress Notes Subjective Date 11/10/16 Time 0903 Note Events of last night reviewed with nurse. Patient was agitated and would not use the Bi-pap. She received an extra dose of Diazepam and has done well since. Currently sleeping with Bi-pap in use. Objective Findings Laboratory Tests 11/10/16 0520: Sodium 143, Potassium 5.7 H, Chloride 102, Carbon Dioxide 44 *H, BUN 32 H, Creatinine 1.0, Estimated Creat Clear 60, Estimated GFR (MDRD) 53 L, Glucose 148 H, Calcium 9.2, WBC 13.1 H, RBC 4.69, Hgb 13.8, Hct 45.2, MCV 96.3, RDW 18.6 H, Plt Count 185, Gran % 89.3 H, Gran # 11.7 H, Total Counted 100, Lymphocytes % 7.5 L, Monocytes % 3.2, Neutrophils 79 H, Band Neutrophils 8, Lymphocytes (Manual) 11, Lymphocytes # 1.0, Monocytes (Manual) 2, Monocytes # 0.4, Platelet Estimate NORMAL, Polychromasia 1+, Hypochromasia 2+, Anisocytosis 1+, PUBS MCHC 30.5 L, MCH 29.4 Vital Signs Date Time Temp Pulse Resp B/P Pulse O2 O2 Flow FiO2 Ox Delivery Rate 11/10 0902 18 11/10 0850 97.6 11/10 0824 2 11/10 0824 2 11/10 0800 64 18 134/66 95 11/10 0700 56 18 132/72 95 11/10 0600 2 11/10 0600 65 20 129/66 96 OXYGEN 11/10 0530 20 11/10 0502 2 11/10 0400 98.1 60 18 110/53 96 OXYGEN 11/10 0400 98.1 60 20 110/53 96 11/10 0200 58 20 95/42 95 OXYGEN 11/10 0000 98.0 67 20 116/55 96 OXYGEN 11/09 2310 2 11/09 2210 2 11/09 2200 65 20 112/70 97 OXYGEN 11/09 2105 2 11/09 2105 98.2 81 20 133/63 93 23 2100 20 11/09 2022 2 11/09 2000 98.2 81 20 133/63 93 OXYGEN 11/09 1924 2 11/09 1800 2 11/09 1800 2 11/09 1800 80 20 129/51 93 OXYGEN 2 11/09 1741 2 11/09 1600 2 11/09 1600 98.6 76 20 134/55 94 OXYGEN 2 11/09 1600 98.0 57 20 129/61 95 2 11/09 1451 2 11/09 1400 59 20 102/42 97 OXYGEN 2 11/09 1320 2 11/09 1200 3 11/09 1200 98.0 57 129/61 95 OXYGEN 2 11/09 1130 2 11/09 1000 3 11/09 1000 67 20 156/76 91 OXYGEN 2 11/09 0930 98.3 51 20 135/65 96 3 I&O Past 24 Hrs-ending at 0700 11/10 0700 Intake Total 790 Output Total Balance 790 Last VS-Temp:97.6 B/P:134/66 Pulse:64 Resp:18 SaO2:95 OXYGEN Last weight lbs:209 oz:4 K.914 Method:Bed Scales Exam General appearance: Sleeping, NAD Cardiovascular: regular rate & rhythm Respiratory: clear to auscultation, good air movement Assessment/Plan Problem List 1. CO2 narcosis Status: Acute 2. Acute respiratory acidosis Status: Acute 3. COPD exacerbation Status: Acute 4. NSTEMI (non-ST elevated myocardial infarction) Status: Acute 5. Elevated troponin Status: Acute 6. COPD (chronic obstructive pulmonary disease) Status: Chronic 7. HTN (hypertension) Status: Chronic 8. Hyperlipidemia Status: Chronic 9. Renal insufficiency This inpt stay is expected to cross 2 MNs from start of care Yes Comments: Patient has improved since admission. Await cardiology evaluation. at 0907
--- NOTE | 2016-11-10 16:17 | CONSULT NOTE ---
Standard Demographics Patient Demo Date of Consultation: 11/10/16 Referring Provider: Erasto Walton MD Reason for Consultation: ABNORMAL CARDIAC TROPONINS. PRIMARY DIAGNOSIS: CO2 NARCOSIS; COPD EXACERBATION; NSTEMI History of present illness: History of present illness: Mrs. Caro is a pleasant 85-year-old female with history of chronic obstructive pulmonary disease and on home oxygen, she was recently sick with cough and congestion and increased shortness of breath and during this time she increased her supplemental oxygen. In the emergency room she was found to have CO2 narcosis and acute respiratory acidosis. Which subsequently improved on BiPAP. During this time a cardiac troponin was obtained which was abnormal. Most of the history is obtained from the chart, there is no history suggestive of angina or congestive heart failure, her electrocardiogram showed nonspecific ST- T changes. Currently she denies any orthopnea PND and appears to be comfortable. Past Medical History: General: Hypertension Yes (NO HISTORY OF CORONARY ARTERY ) CVA No Seizures No TB No COPD Yes Asthma Yes Diabetes No Angina No MN No Hyperlipidemia Yes Cancer No MRSA No GB Disease No Allergies Coded Allergies: No Known Drug Allergies (NKDA) (11/09/16) Home medications: Reported Medications Multivitamin W/Iron, Minerals (Spectravite Senior) 1 EACH PO DAILY LISINOPRIL (Lisinopril) 10 MG PO DAILY Diazepam (Diazepam 5MG) 5 MG PO BID Montelukast Sodium (Singulair) 10 MG PO QHS Simvastatin (Simvastatin 40MG Tab) 40 MG PO DAILY THEOPHYLLINE ANHYDROUS (Beni-24) 200 MG PO BID Immunization HX DT/Tetanus > 10 Years Pneumonia RECEIVED IN PAST TB Test in last year Yes Result Negative Family history Family HX Diabetes Yes CAD Yes Hypertension Yes Hyperlipidemia Yes Cancer Yes TB No Social Hx: Smoking HX Tobacco No Type N/A Packs/day N/A Are you/the child exposed to second-hand smoke: No Alcohol Alcohol: No Hx of Drug Use Drug Use? No Review of systems: Constitutional No: see HPI. Respiratory No: see HPI, cough, shortness of breath. Cardiovascular No see HPI, No chest pain Gastrointestinal/Abdominal No see HPI Genitourinary No: see HPI. Musculoskeletal No: see HPI. Neurological No: see HPI. Exam: Admission Vital Signs: 1ST Vital Signs Result Date Time Pulse Ox 100 11/09 0001 B/P 156/85 11/09 0001 O2 Flow Rate 2 11/09 0001 Temp 98.3 11/09 0001 Pulse 91 11/09 0001 Resp 36 11/09 0001 O2 Delivery OXYGEN 11/09 0259 Last Vital Signs: Vital Signs Result Date Time O2 Flow Rate 2 11/10 1605 Pulse Ox 97 11/10 1409 B/P 136/59 11/10 1409 Pulse 57 11/10 1409 Resp 18 11/10 1409 O2 Delivery OXYGEN 11/10 1300 Temp 97.6 11/10 1000 Laboratory data: Laboratory Tests 11/10/16 0520: Sodium 143, Potassium 5.7 H, Chloride 102, Carbon Dioxide 44 *H, BUN 32 H, Creatinine 1.0, Estimated Creat Clear 60, Estimated GFR (MDRD) 53 L, Glucose 148 H, Calcium 9.2, WBC 13.1 H, RBC 4.69, Hgb 13.8, Hct 45.2, MCV 96.3, RDW 18.6 H, Plt Count 185, Gran % 89.3 H, Gran # 11.7 H, Total Counted 100, Lymphocytes % 7.5 L, Monocytes % 3.2, Neutrophils 79 H, Band Neutrophils 8, Lymphocytes (Manual) 11, Lymphocytes # 1.0, Monocytes (Manual) 2, Monocytes # 0.4, Platelet Estimate NORMAL, Polychromasia 1+, Hypochromasia 2+, Anisocytosis 1+, PUBS MCHC 30.5 L, MCH 29.4 11/09/16 0900: Creatine Kinase 76, CK-MB (CK-2) Rel Index 3.7, CK and CKMB Interp 2.8, Troponin I 0.68 H 11/09/16 0655: POC Glucose 131 H 11/09/16 0610: ABG pH 7.35, ABG pCO2 (Temp Corrct 72.6 H, ABG pO2 (Temp Correct 90.3, ABG HCO3 39.0 H, ABG Total CO2 41.2 H, ABG O2 Sat (Calculated) 96.5, ABG Base Excess 13.4 H, Darinel Test ACCEPTABLE, Vent Rate 18, POC PEEP 7, Pressure Support 14, Blood Gas Comments LEFT RADIAL 11/09/16 0305: Creatine Kinase 103, CK-MB (CK-2) Rel Index 3.4, CK and CKMB Interp 3.5, Troponin I 0.95 H, Triglycerides 76, Cholesterol 130, LDL Cholesterol 25.8, VLDL Cholesterol 15.2, HDL Cholesterol 89.0 H 11/09/16 0026: ABG pH 7.24 *L, ABG pCO2 (Temp Corrct 96.6 H, ABG pO2 (Temp Correct 85.8, ABG HCO3 40.2 H, ABG Total CO2 43.2 H, ABG O2 Sat (Calculated) 94.7, ABG Base Excess 12.7 H, Darinel Test Y, Blood Gas Comments R/R 11/09/1614: Hemoglobin A1c 6.6 11/09/1614: TSH 0.85, Free T4 Index 3.8 L, Thyroxine (T4) 4.5 L, T3 Uptake 34 11/09/1614: Sodium 143, Potassium 4.8, Chloride 101, Carbon Dioxide 43 *H, BUN 26 H, Creatinine 1.0, Estimated Creat Clear 52, Estimated GFR (MDRD) 53 L, Glucose 201 H, Calcium 9.5, Total Bilirubin 0.4, AST 22, ALT 22, Alkaline Phosphatase 74, Creatine Kinase 63, CK and CKMB Interp 3.9 H, Troponin I 0.82 H, Total Protein 7.7, Albumin 3.7, Globulin 4.0 H, Albumin/Globulin Ratio 0.9 L, WBC 10.6, RBC 4.68, Hgb 13.7, Hct 44.5, MCV 95.0, RDW 18.0 H, Plt Count 204, Gran % 77.6, Gran # 8.2 H, Lymphocytes % 17.3, Monocytes % 5.1, Lymphocytes # 1.8, Monocytes # 0.5, PUBS MCHC 30.8 L, MCH 29.3 Plan: Assessment: Impression 1. Abnormal cardiac troponin likely secondary to acute respiratory failure and CO2 narcosis, does not appear to be acute coronary syndrome, normal LEFT ventricular systolic function without segmental wall motion abnormalities on echocardiogram. Moderately enlarged RIGHT ventricle with moderate reduction in RIGHT ventricular systolic function. 2. Hypertension 3. Chronic obstructive pulmonary disease 4. Hyperlipidemia 5. Renal insufficiency improved. Recommendations: 1. Continue current medical treatment, and supportive care. 2. Will treat her medically from the cardiac standpoint of view, no further cardiac workup is planned at this time. Call us if further question, thank you very much for this interesting consult.
--- NOTE | 2016-11-10 16:57 | ACUTE CARE PROGRESS NOTE (QUA) ---
Progress Notes Subjective Date 11/10/16 Time 1654 Note per nursing: has been off BIPAP and weaned to 2 LPM; has done well with this; patient complaining of being hungry crdiology note reviewed Objective Exam General appearance: alert, no acute distress Cardiovascular: regular rate & rhythm Respiratory: Clear anteriorly; using abdominal muscles with breathing Skin: dry, warm, pink Assessment/Plan Problem List 1. CO2 narcosis Status: Acute 2. Acute respiratory acidosis Status: Acute 3. COPD exacerbation Status: Acute 4. NSTEMI (non-ST elevated myocardial infarction) Status: Acute 5. Elevated troponin Status: Acute 6. COPD (chronic obstructive pulmonary disease) Status: Chronic 7. HTN (hypertension) Status: Chronic 8. Hyperlipidemia Status: Chronic 9. Renal insufficiency Patient condition Guarded Plan: continue current care This inpt stay is expected to cross 2 MNs from start of care Yes (Kathy Chapman APRN) Assessment/Plan Problem List 1. CO2 narcosis Status: Acute 2. Acute respiratory acidosis Status: Acute 3. COPD exacerbation Status: Acute 4. NSTEMI (non-ST elevated myocardial infarction) Status: Acute 5. Elevated troponin Status: Acute 6. COPD (chronic obstructive pulmonary disease) Status: Chronic 7. HTN (hypertension) Status: Chronic 8. Hyperlipidemia Status: Chronic 9. Renal insufficiency Comments: Saw patient this morning. While laying flat, her O2 sats fell into the low 80's and her heart rate became irregular. Will check EKG and give a Xopenex neb now and ask Dr. Edmondson to see patient today. (Erasto Walton MD) at 1656 at 0901
--- NOTE | 2016-11-10 16:59 | RADIOLOGY REPORT PS360 ---
PROCEDURE: 2-D M-mode and color Doppler study INDICATIONS FOR THE TEST: Chest pain COPD+ Heart Murmur Tobacco Smoking Palpitations Fatigue Syncope Edema Hypertension+Diabetes Mellitus Rheumatic Fever SOB+REY Obesity Hyperlipidemia+ Family History HD Additional History O2 DEPENDENT ON BIPAP FLAT ON BACK PATIENT INFORMATION HEIGHT:66 WEIGHT:180 GENDER: F B/P:156/85 2-D/M-MODE INTERPRETATION: 2-D MEASUREMENTS OBSERVED VALUES IN CMS Right Ventricular Dimension (RVDd) 2.5 Interventricular Septum (Thickness)(IVsd) 1.7 Left Ventricular Internal Dimensions(LVIDd) 4.0 Left Ventricular Posterior Wall (Thickness)(LVPWd) 1.3 Aortic Root 3.9 Aortic Cusp Separation 2.3 Left Atrial Dimensions (LAD) 4.4 2D 1. Left atrium is moderately enlarged, left ventricle is normal size, there is mild concentric left ventricular hypertrophy present, visually estimated ejection fraction 55% with no obvious regional wall motion abnormality. There is flattening of the interventricular septum during diastole and systole consistent with a shallow and volume overload on right ventricle. 2. The right atrium and right ventricle are moderately enlarged, there is moderate reduction in right ventricular systolic function. 3. The aortic valve is thickened and calcified, leaflet continue to display mobility. 4. The mitral and tricuspid valve are minimally thickened. 5. The pulmonic valve is poorly visualized. 6. No significant pericardial effusion noted. DOPPLER INTERROGATION: The Doppler interrogation of the aortic mitral and tricuspid valvular presence of moderate mitral and tricuspid regurgitation, calculated right ventricular systolic pressure is 63 mmHg consistent with moderate pulmonary hypertension, diastolic parameters are inconclusive, mild aortic insufficiency is also seen. CONCLUSION: 1. Biatrial enlargement, normal left ventricular size, mild concentric left ventricular hypertrophy, visually estimated ejection fraction of 55% with no obvious regional wall motion abnormality. 2. Moderately enlarged right ventricle with moderate reduction in right ventricular systolic function. 3. Mild aortic, moderate mitral and moderate tricuspid regurgitation, calculated right ventricular systolic pressure of 63 mmHg consistent with moderate pulmonary hypertension. 4. No significant pericardial effusion noted.
[2016-11-11] VITALS (23 sets, daily range): BP systolic 104–158; BP diastolic 44–118
[2016-11-11 06:21] LABS: LYMPH # 0.9 K/mm3 (0.7-4.5); LYMPH % 7.2 % (10-50.0)
[2016-11-11 09:29] LABS: NEUTROPHILS 82 % (42-76)
--- NOTE | 2016-11-11 17:34 | CONSULT NOTE ---
See Addendum Consult Note Note: Ms. Caro is an 85-year-old woman who has a history of chronic obstructive pulmonary disease and asthma complicated by chronic respiratory failure. My history is somewhat vague because she was very somnolent and her daughter was a little unclear on the time sequences. She has been living in her own home with one of her sons in the [facility] and visiting her daughter here in [place] fairly frequently lately. Her daughter had noticed a decline in her health and that she seems somewhat more breathless and frail over the last year. She has a flight or 2 of stairs to climb into her apartment and this is becoming more difficult for her. Her daughter had planned to have her mother moved down here with her in the near future. When her daughter saw her a week or so ago during a visit here, she was doing fairly well. Over the last several days, she seemed more breathless. She came back here with her son just yesterday and they were out driving "looking for a car" when she became more and more somnolent and was taken to the emergency room. There, she seemed dyspneic and she was clearly in acute on chronic hypercapnic respiratory failure. She was lethargic and confused and required BiPAP overnight. She was less somnolent this morning but, apparently agitated, and received Valium. Sometime thereafter, she became extremely sleepy. Her daughter believes that the reason she became so sleepy initially was because her son had turned up her portable oxygen "all the way." I believe she was on nebulizers at home. She never smoked cigarettes. Her daughter believes that her only significant past history is hypertension, hyperlipidemia and chronic arthritis. She has had cataract surgery and ventral hernia repair. She does not know whether her mother has had the pneumococcal or influenza vaccines. Family history: Unknown. Social history: Mrs. Caro is a and lives in her own home with one of her sons. Her other son and her daughter and their families living [place] and she lives in the [facility]. She has been fairly independent. Review of systems: Ms. Caro awakened while I was examining her and, although she seemed slightly confused, she told me that she had no chest or abdominal pain. She is very hard of hearing and she apparently wears glasses. She does have chronic pain in her back and some joints. Her daughter noticed that she was scratching her lower legs and wondered with her she had bedbugs at home. The rest of a 14 point review of systems is negative but I'm not sure how reliable it is. On physical examination, Mrs. Caro is a chronically ill, overweight, elderly woman who is lying in bed at 60 degrees elevation wearing oxygen by nasal cannula. Vital signs: Blood pressure 117/72, pulse 96, temperature 97.6, respiratory rate 18 and oxygen saturation 97 percent on 2 L/m. When she opened her eyes, her EOMs were full and her pupils were equal and reactive to light. Sclerae were clear and conjunctivae were pink. External nares were unremarkable. The oropharynx was Mallampati IV and somewhat dry. Neck: JVD about 2 cm above the RIGHT clavicle. No adenopathy. Chest: Dorsal kyphosis; normal percussion note on the RIGHT and dullness on the LEFT. Breath sounds were diminished at the LEFT base. There was a prolongation of expiratory phase of ventilation. No adventitious sounds were heard. Heart: Irregularly irregular rhythm. I could hear no murmur. Abdomen: Bowel sounds diminished; soft, nontender, no masses or organomegaly. Skin: No rash but the lower legs were covered by compression stockings. Neurological: When she awakened, she initially told me that she was 44 and then "almost 84." She could not guess the year, even when told it was "1999 and." She was fatigued and I didn't go further. I reviewed a CT scan of the chest performed with pulmonary embolism protocol on November 09. I don't see evidence of emphysema. There appears to be a small pleural effusion on the LEFT. There is atelectasis of the LEFT lower lobe associated with an elevation of the LEFT hemidiaphragm. I can't see the airway clearly. I reviewed the report of the electrocardiogram which was read as showing normal sinus rhythm with nonspecific ST-T wave changes and bundle-branch blocks. Ectopy was mentioned. There was slight elevation in troponin. I read Dr. Roldan"s note. Assessment and plan: Ms. Caro came in with acute on chronic respiratory failure that may have been, in part, precipitated by high flow oxygen. She apparently seemed better this morning and may have been oversedated by Valium. I understand she takes a half a pill once daily at home. She is waking up now. I spent some time discussing end-of-life planning with her daughter who told me that her mother had wanted resuscitative efforts. I see that she signed a DNR somehow when she came in. I know you will be discussing this with her. Her pulse is quite irregular now and it's possible that she is in atrial fibrillation. I can't be sure that there is not an endobronchial obstruction causing the LEFT lower lobe atelectasis and suggest a repeat CT scan when she is more stable. If that finding persists, bronchoscopy should be considered if she is not a DNR. I understand she has a physician in [place] and, since she has not yet moved, she will likely go back there. I be happy to see her as an outpatient should something change. I do not see evidence of pneumonia and I don't think she needs antibiotics for respiratory infection. Thank you for the opportunity to participate in Ms. Vania valdez. at 0430
--- NOTE | 2016-11-11 23:42 | ACUTE CARE PROGRESS NOTE (QUA) ---
Progress Notes Subjective Date 11/11/16 Time 1600 Note Pt sitting up in the chair upon entering the room. She appears to be in no distress. She states her SOB has improved. Denies cough and congestion today. No CP or pressure. Denies edema. Denies fevers, chills, N/V/D, PND or orthopnea. Patient/family reports: feeling better, shortness of breath Objective Findings Last VS-Temp:97.6 B/P:123/71 Pulse:72 Resp:20 SaO2:97 OXYGEN Last weight lbs:209 oz:4 K.914 Method:Bed Scales Exam General appearance: normal appearance, alert, awake, face symmetric, no acute distress Eyes: normal exam, conjunctiva clear, EOM's w/normal ROM, pupils reactive to light, PERRLA, sclera clear ENT: normal exam, mucous membranes moist, nose normal, pharynx normal Neck: normal inspection, non-tender, no carotid bruit, full range of motion, range of motion, supple, JVD Cardiovascular: normal exam, no ectopics, normal sinus rhythm, PMI normal, no murmur, normal peripheral pulses, edema, irregularly irregular, peripheral edema Respiratory: aerating well, chest non-tender, no respiratory distress, trachea midline, on oxygen, basilar rales, diminished breath sounds ABD: normal exam, non-distended, normal bowel sounds, no rebound, soft, no tenderness, no guarding, no organomegaly, no palpable mass, bowel sounds present (all quads) Extremities: normal exam, moves all, normal capillary refill, femoral pulses (present), warm, pedal pulses (present), edema (2+) Skin: dry, intact, normal color, no gross abnormalities, warm Neuro: normal exam, alert, employee communications 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 CO2 narcosis Status: Acute 2. Acute respiratory acidosis Status: Acute 3. COPD exacerbation Status: Acute 4. NSTEMI (non-ST elevated myocardial infarction) Status: Acute 5. Elevated troponin Status: Acute 6. COPD (chronic obstructive pulmonary disease) Status: Chronic 7. HTN (hypertension) Status: Chronic 8. Hyperlipidemia Status: Chronic 9. Renal insufficiency Patient condition Guarded Plan: continue current care, order additional tests This inpt stay is expected to cross 2 MNs from start of care Yes Comments: Impression: Elevated troponin/Demand ischemia COPD exacerbation/CO2 Narcosis Atrial fibrillation Pulmon HTN, moderate Mitral Regurgitation, moderate HTN plan: 1. pt admitted with CO2 narcosis with acute respiratory failure. This is being treated by the hospitalist. 2. pt had an elevated troponin. this is likely demand ischemia from the acute respiratory failure and CO2 narcosis. she denies CP or pressure. no plans for LHC at this time. 3. Pt has moderate MR and moderate pulmon HTN by Echo. She does have JVD on exam. will plan to proceed with RHC with R IJ access. Pt educated on risks and benefits of procedure. pt verbalized understanding and is agreeable in proceeding with the procedure. 4. Atrial fibrillation is rate controlled.. 5. Pt on lovenox for a/c.will discuss senior living a/c following RHC. 6. BP is well controlled. 7. LDL goal is < 100. 8. COPD is present. 9. Further recommendations pending patients response to treatment and the results of RHC in the morning. Thank you for the opportunity to help participate in the care of this patient. at 4091
[2016-11-12] VITALS (12 sets, daily range): BP systolic 117–175; BP diastolic 53–87
--- NOTE | 2016-11-12 08:07 | ACUTE CARE PROGRESS NOTE (QUA) ---
Progress Notes Subjective Date 11/12/16 Time 0710 Note Wants BIPAP off; SOB with any exertion; denies CP; requests water; NPO for cardiac cath Daughter stayed with patient last night and states she had an OK night; Nursing states that O2 sats dropped and she had to be placed back on BIPAP after which she did sleep. Dr. Edmondson note appreciated Objective Findings Vital Signs Date Time Temp Pulse Resp B/P Pulse O2 O2 Flow FiO2 Ox Delivery Rate 11/12 0600 98.7 77 11 141/55 95 11/12 0451 3 11/12 0445 98.7 11/12 0400 77 11 141/55 95 OXYGEN 3 11/12 0200 60 27 134/57 98 OXYGEN 11/12 0100 59 117/69 95 OXYGEN 11/12 0000 59 123/64 93 OXYGEN 11/11 2300 70 26 156/59 91 OXYGEN 11/11 2200 64 28 109/47 99 OXYGEN 11/11 2100 62 25 135/66 99 OXYGEN 3 11/11 2000 83 19 158/75 100 OXYGEN 3 11/12 1999 97.6 72 20 123/71 97 3 11/11 1940 3 11/11 1900 72 20 123/71 97 OXYGEN 3 11/11 1858 3 11/11 1813 97.6 83 20 153/118 97 3 11/11 1800 85 18 131/65 90 OXYGEN 3 11/11 1700 3 11/11 1700 63 20 126/54 99 OXYGEN 3 11/11 1600 93 18 119/62 99 OXYGEN 3 11/11 1500 3 11/11 1500 97.6 76 20 125/55 98 OXYGEN 3 11/11 1400 3 11/11 1400 63 20 153/118 87 OXYGEN 3 11/11 1300 3 11/11 1300 96 20 117/72 97 OXYGEN 3 11/11 1200 74 18 129/56 100 OXYGEN 3 11/11 1100 3 11/11 1100 86 18 104/59 100 OXYGEN 3 11/11 1027 97.6 67 18 132/69 97 3 11/11 1000 97.6 71 22 112/44 100 OXYGEN 3 11/11 0928 18 11/11 0900 3 11/11 0900 83 22 122/54 91 OXYGEN Current Medications Diphenhydramine HCl 50 MG ONCE ONE IV (DC) Sodium Chloride 10 ML PRN PRN IV Diazepam 2 MG BIDP PRN PO Diazepam 0 .STK-MED ONE PO (DC) Levalbuterol HCl 0.63 MG ONCE ONE INH (DC) Ceftriaxone Sodium 1 GM 0100 IV Sodium Chloride 50 ML Montelukast Sodium 10 MG QHS PO Clopidogrel Bisulfate 75 MG DAILY PO Diazepam 5 MG BID PO (DC) Enoxaparin Sodium 90 MG BID SC Lisinopril 10 MG DAILY PO Methylprednisolone Sodium Succinate 60 MG Q12 IV 11/11 1500 11/11 2300 11/12 0700 Intake Total 360 240 Output Total 600 Balance 360 -360 Intake, Oral 360 240 Output, Urine 600 Patient 207 lb Weight Last VS-Temp:98.7 B/P:141/55 Pulse:77 Resp:11 SaO2:95 OXYGEN Last weight lbs:207 oz:6 K.064 Method:Bed Scales Exam General appearance: alert, awake, SOB with any exertion Cardiovascular: irregularly irregular (at fib on monitor) Respiratory: clear to auscultation (bilat anterior and posterior), using abdominal muscles with breathing ABD: non-distended, soft, no tenderness, bowel sounds present Extremities: no peripheral edema Neuro: alert, oriented, speech clear Assessment/Plan Problem List 1. CO2 narcosis Status: Acute 2. Acute respiratory acidosis Status: Acute 3. COPD exacerbation Status: Acute 4. NSTEMI (non-ST elevated myocardial infarction) Status: Acute 5. Elevated troponin Status: Acute 6. COPD (chronic obstructive pulmonary disease) Status: Chronic 7. HTN (hypertension) Status: Chronic 8. Hyperlipidemia Status: Chronic 9. Renal insufficiency Patient condition Guarded Plan: continue current care, to have cardiac cath this AM This inpt stay is expected to cross 2 MNs from start of care Yes at 0807
[2016-11-13] VITALS (11 sets, daily range): BP systolic 129–176; BP diastolic 54–89
[2016-11-13 06:50] LABS: LYMPH # 0.8 K/mm3 (0.7-4.5); LYMPH % 6.5 % (10-50.0)
[2016-11-13 08:39] LABS: NEUTROPHILS 75 % (42-76)
--- NOTE | 2016-11-13 08:51 | ACUTE CARE PROGRESS NOTE (QUA) ---
Progress Notes Subjective Date 11/13/16 Time 0745 Note Pt is currently resting well with bipap in place, sats 93-94%. Pt arouses to touch, remains drowsy. She answers yes/no questions by shaking her head, denies pain. No family at bedside. Objective Findings Last VS-Temp:98.2 B/P:176/60 Pulse:103 Resp:16 SaO2:91 OXYGEN Last weight lbs:204 oz:5 K.675 Method:Bed Scales Exam General appearance: no acute distress, bipap in place Cardiovascular: regular rate & rhythm, normal peripheral pulses Respiratory: diminished throughout ABD: non-distended, soft, no tenderness, no guarding, no organomegaly, bowel sounds present Extremities: no calf tenderness, no BLE edema with PAULINO hose in place; RUE edema Neuro: arouses to tactile stimuli, drowsy Reviewed: vital signs, lab results, radiology report, consult note, nursing notes Assessment/Plan Problem List 1. CO2 narcosis Status: Acute 2. Acute respiratory acidosis Status: Acute 3. COPD exacerbation Status: Acute 4. NSTEMI (non-ST elevated myocardial infarction) Status: Acute 5. Elevated troponin Status: Acute 6. COPD (chronic obstructive pulmonary disease) Status: Chronic 7. HTN (hypertension) Status: Chronic 8. Hyperlipidemia Status: Chronic 9. Renal insufficiency Patient condition Guarded Plan: Further per Dr. Walton. This inpt stay is expected to cross 2 MNs from start of care Yes (HOMERO MCCLURE APRN) Assessment/Plan Problem List 1. CO2 narcosis Status: Acute 2. Acute respiratory acidosis Status: Acute 3. COPD exacerbation Status: Acute 4. NSTEMI (non-ST elevated myocardial infarction) Status: Acute 5. Elevated troponin Status: Acute 6. COPD (chronic obstructive pulmonary disease) Status: Chronic 7. HTN (hypertension) Status: Chronic 8. Hyperlipidemia Status: Chronic 9. Renal insufficiency Comments: Patient has been slow to improve, still Bi-pap dependent most of the time, still in a.fib, will explore transfer to to gain access to specialty care. (Erasto Walton MD) at 0850 at 0851
[2016-11-13 11:12] LABS: ARTERIAL ABE 28.5 MMOL/L (-2.4-+2.3); ARTERIAL TCO2 58.5 MMOL/L (23-27); OXYGEN 35%; PRESSURE SUPPORT 7; VENT RATE 16
[2016-11-13 11:13] LABS: ALLEN'S TEST PATIENT UNABLE
[2016-11-14] VITALS (20 sets, daily range): BP systolic 124–170; BP diastolic 63–94
--- NOTE | 2016-11-14 08:46 | ACUTE CARE PROGRESS NOTE (QUA) ---
Progress Notes Subjective Date 11/14/16 Time 0735 Note Pt is currently resting quietly with bipap in place, sats 92-93%. Pt arouses to touch, remains drowsy. She will answer yes/no questions by shaking her head, denies pain. Family presently asleep at bedside. Objective Findings Last VS-Temp:97.2 B/P:163/67 Pulse:92 Resp:20 SaO2:93 OXYGEN Last weight lbs:201 oz:0 K.172 Method:Floor Scales Exam General appearance: Arouses to touch, drifts back to sleep quickly ENT: bipap in place Cardiovascular: normal peripheral pulses, irregular Respiratory: generally diminished with rhonchi throughout ABD: soft, no tenderness, bowel sounds present Extremities: trace bilateral pedal/ankle edema Neuro: drowsy Reviewed: vital signs, lab results, nursing notes Assessment/Plan Problem List 1. CO2 narcosis Status: Acute 2. Acute respiratory acidosis Status: Acute 3. COPD exacerbation Status: Acute 4. NSTEMI (non-ST elevated myocardial infarction) Status: Acute 5. Elevated troponin Status: Acute 6. COPD (chronic obstructive pulmonary disease) Status: Chronic 7. HTN (hypertension) Status: Chronic 8. Hyperlipidemia Status: Chronic 9. Renal insufficiency Patient condition Guarded Plan: Will obtain ABG's this morning. Awaiting bed availability at . This inpt stay is expected to cross 2 MNs from start of care Yes (HOMERO MCCLURE APRN) Assessment/Plan Problem List 1. CO2 narcosis Status: Acute 2. Acute respiratory acidosis Status: Acute 3. COPD exacerbation Status: Acute 4. NSTEMI (non-ST elevated myocardial infarction) Status: Acute 5. Elevated troponin Status: Acute 6. COPD (chronic obstructive pulmonary disease) Status: Chronic 7. HTN (hypertension) Status: Chronic 8. Hyperlipidemia Status: Chronic 9. Renal insufficiency Comments: Patient seen and agree with above note. (Erasto Walton MD) at 0846 at 0904
--- NOTE | 2016-11-14 09:41 | ACUTE CARE PROGRESS NOTE (QUA) ---
Progress Notes Subjective Date 11/14/16 Time 0941 Assessment/Plan Problem List 1. CO2 narcosis Status: Acute 2. Acute respiratory acidosis Status: Acute 3. COPD exacerbation Status: Acute 4. NSTEMI (non-ST elevated myocardial infarction) Status: Acute 5. Elevated troponin Status: Acute 6. COPD (chronic obstructive pulmonary disease) Status: Chronic 7. HTN (hypertension) Status: Chronic 8. Hyperlipidemia Status: Chronic 9. Renal insufficiency This inpt stay is expected to cross 2 MNs from start of care Yes Antibiotic Stewardship (2) Infxn that will respond? Yes Right drug,dose,and route? Yes More targeted antbx? No at 0941
[2016-11-14 09:59] LABS: ARTERIAL ABE 23.3 MMOL/L (-2.4-+2.3); ARTERIAL PO2 67.7 MMHG (80-100); ARTERIAL TCO2 48.6 MMOL/L (23-27)
[2016-11-14 10:00] LABS: ALLEN'S TEST PATIENT UNABLE; OXYGEN 30; PRESSURE SUPPORT 10; VENT RATE 20
[2016-11-15] VITALS (17 sets, daily range): BP systolic 91–167; BP diastolic 46–85
--- NOTE | 2016-11-15 08:16 | ACUTE CARE PROGRESS NOTE (QUA) ---
Progress Notes Subjective Date 11/15/16 Time 0811 Note Patient was able to be off of Bi-pap for a few hours yesterday and was able to eat. No new complaints. Objective Findings Laboratory Tests 11/14/16 0943: ABG pH 7.49 H, ABG pCO2 (Temp Corrct 63.0 H, ABG pO2 (Temp Correct 67.7 L, ABG HCO3 46.7 H, ABG Total CO2 48.6 H, ABG O2 Sat (Calculated) 93.5, ABG Base Excess 23.3 H, Darinel Test PATIENT UNABLE, Vent Rate 20, Tidal Volume BIPAP18/8, Pressure Support 10, Blood Gas Comments LEFT RADIAL Vital Signs Date Time Temp Pulse Resp B/P Pulse O2 O2 Flow FiO2 Ox Delivery Rate 11/15 0658 91 25 126/65 90 OXYGEN 11/15 0625 12 11/15 0615 92 OXYGEN 11/15 0600 96 13 126/65 91 OXYGEN 11/15 0500 87 27 150/77 91 OXYGEN 11/15 0458 98.3 78 23 104/66 92 11/15 0455 11/15 0400 78 23 104/66 92 OXYGEN 11/15 0355 30 11/15 0200 30 11/15 0200 95 24 127/76 93 OXYGEN 11/15 0132 11/15 0100 93 24 167/84 93 OXYGEN 11/15 0012 11/15 0000 99.0 93 22 122/66 92 OXYGEN 11/14 2345 11/14 2300 108 24 137/81 92 OXYGEN 11/14 2219 11/14 2200 30 11/14 2200 108 124/90 97 OXYGEN 11/14 2110 11/14 2100 86 21 146/75 97 OXYGEN 11/14 2045 11/14 97.6 91 20 138/70 94 11/14 2000 97.6 91 22 138/70 94 OXYGEN 11/14 1946 11/14 1924 12 11/14 1908 30 11/14 1904 12 11/14 1904 30 11/14 1904 91 OXYGEN 11/14 1820 99.1 100 24 147/94 92 OXYGEN 11/14 1807 11/14 1702 97.6 105 24 144/63 96 OXYGEN 11/14 1701 11/14 1640 11/14 1600 97.6 103 24 135/73 96 OXYGEN 11/14 1522 98.0 106 15 146/69 97 9 11/14 1502 12 11/14 1500 98.0 106 15 146/69 97 OXYGEN 12 11/14 1406 3 11/14 1400 98.0 96 15 163/94 97 OXYGEN 11/14 1350 3 11/14 1300 98.1 101 20 133/91 92 OXYGEN 11/14 1251 3 11/14 1200 98.3 101 20 133/91 93 OXYGEN 11/14 1145 3 11/14 1100 98.3 93 20 156/79 93 OXYGEN 11/14 1022 11/14 1018 3 11/14 1008 99.6 93 20 125/83 93 OXYGEN 11/14 0853 98.1 91 20 143/81 93 11/14 0842 3 I&O Past 24 Hrs-ending at 00 11/15 07 Intake Total 170 Output Total Balance 170 Last VS-Temp:98.3 B/P:126/65 Pulse:91 Resp:25 SaO2:90 OXYGEN Last weight lbs:201 oz:0 K.172 Method:Floor Scales Exam General appearance: alert, awake Cardiovascular: irregularly irregular Respiratory: good air movement ABD: normal bowel sounds, soft, no tenderness Extremities: edema (1+ in all extremities) Skin: extensive bruising on arms Assessment/Plan Problem List 1. CO2 narcosis Status: Acute 2. Acute respiratory acidosis Status: Acute 3. COPD exacerbation Status: Acute 4. NSTEMI (non-ST elevated myocardial infarction) Status: Acute 5. Elevated troponin Status: Acute 6. COPD (chronic obstructive pulmonary disease) Status: Chronic 7. HTN (hypertension) Status: Chronic 8. Hyperlipidemia Status: Chronic 9. Renal insufficiency This inpt stay is expected to cross 2 MNs from start of care Yes Comments: Patient slowly improving. Still awaiting bed at , continue current treatment. Antibiotic Stewardship (2) Infxn that will respond? Yes Right drug,dose,and route? Yes More targeted antbx? No at 0815
[2016-11-16] VITALS (9 sets, daily range): BP systolic 95–144; BP diastolic 37–59
--- NOTE | 2016-11-16 12:52 | ACUTE CARE PROGRESS NOTE (QUA) ---
Progress Notes Subjective Date 11/16/16 Time 1241 Note She is not in distress but she looks quite frail. Her breathing is shallow. Her lips are bluish. She is on nasal oxygen at this time. Her sat is 77 percent. She was stable on BiPAP through the night. Objective Findings Last VS-Temp:98.6 B/P:90/46 Pulse:74 Resp:18 SaO2:96 OXYGEN Last weight lbs:201 oz:0 K.172 Method:Floor Scales Exam General appearance: lethargic Eyes: PERRLA ENT: mucous membranes moist, cyanosis of the lips Neck: no JVD Cardiovascular: irregularly irregular Respiratory: diminished breath sounds, breathing is shallow. She was obviously not ventilating her lungs fully. ABD: soft, no tenderness Extremities: no peripheral edema (PAULINO's in place) Skin: dry Neuro: lethargic Reviewed: medications, vital signs, lab results, radiology report Assessment/Plan Problem List 1. CO2 narcosis Status: Acute 2. Acute respiratory acidosis Status: Acute 3. COPD exacerbation Status: Acute 4. NSTEMI (non-ST elevated myocardial infarction) Status: Acute 5. Elevated troponin Status: Acute 6. COPD (chronic obstructive pulmonary disease) Status: Chronic 7. HTN (hypertension) Status: Chronic 8. Hyperlipidemia Status: Chronic 9. Renal insufficiency Patient condition Guarded Plan: she needs to go back on BiPAP at this time. This inpt stay is expected to cross 2 MNs from start of care Yes Antibiotic Stewardship (2) Infxn that will respond? Yes Right drug,dose,and route? Yes More targeted antbx? No at 1252
[2016-11-16 13:22] LABS: LYMPH # 0.9 K/mm3 (0.7-4.5); LYMPH % 4.4 % (10-50.0)
[2016-11-16 13:29] LABS: HEMOGLOBIN 9.2 g/dL (12.2-16.2)
[2016-11-16 13:47] LABS: NEUTROPHILS 88 % (42-76)
[2016-11-17] VITALS (8 sets, daily range): BP systolic 86–127; BP diastolic 51–74
[2016-11-17 05:29] LABS: HEMOGLOBIN 8.6 g/dL (12.2-16.2); LYMPH # 0.8 K/mm3 (0.7-4.5)
--- NOTE | 2016-11-17 08:44 | ACUTE CARE PROGRESS NOTE (QUA) ---
Progress Notes Subjective Date 11/17/16 Time 0838 Note Patient reports having a non productive cough this morning, she states she did not need Bi-pap overnight, she only used the Venti mask. Objective Findings Laboratory Tests 11/17/16 0515: Sodium 144, Potassium 5.0, Chloride 100, Carbon Dioxide 46 *H, BUN 101 *H, Creatinine 1.4 H, Estimated Creat Clear 42 L, Estimated GFR (MDRD) 36 L, Glucose 155 H, Calcium 8.1 L, WBC 20.8 *H, RBC 2.76 L, Hgb 8.6 L, Hct 27.6 L, MCV 99.8 H, RDW 15.6, Plt Count 164, MPV 9.1, Gran % 91.4 H, Gran # 19.0 H , Lymphocytes % 4.0 L, Monocytes % 3.6, Eosinophils % 0.8, Basophils % 0.1, Lymphocytes # 0.8, Monocytes # 0.8, Eosinophils # 0.2, Basophils # 0.0, PUBS MCHC 31.1 L, MCH 31.1 11/16/16 1405: Sodium 150 H, Potassium 5.1, Chloride 104, Carbon Dioxide 43 *H, BUN 101 *H, Creatinine 1.4 H, Estimated Creat Clear 42 L, Estimated GFR (MDRD) 36 L, Glucose 189 H, Calcium 8.6, Total Bilirubin 0.5, AST 22, ALT 22, Alkaline Phosphatase 42 L, Total Protein 5.7 L, Albumin 3.1 L, Globulin 2.6, Albumin/ Globulin Ratio 1.2 11/16/16 1312: WBC 20.0 H, RBC 3.04 L, Hgb 9.2 L, Hct 29.0 L, MCV 95.6, RDW 15.7, Plt Count 167, MPV 9.1, Gran % 89.1 H, Gran # 17.9 H, Total Counted 100, Lymphocytes % 4.4 L, Monocytes % 5.5, Eosinophils % 1.0, Basophils % 0.1, Neutrophils 88 H, Lymphocytes (Manual) 7 L, Lymphocytes # 0.9, Monocytes (Manual) 5, Monocytes # 1.1 H, Eosinophils # 0.2, Basophils # 0.0, Platelet Estimate NORMAL, PUBS MCHC 31.6 L, MCH 30.2 Vital Signs Date Time Temp Pulse Resp B/P Pulse O2 O2 Flow FiO2 Ox Delivery Rate 11/17 0600 75 22 102/57 100 OXYGEN 3 11/17 0555 3 11/17 0554 3 11/17 0554 100 OXYGEN 3 11/17 0527 3 11/17 0400 73 22 108/64 99 OXYGEN 3 11/17 0315 3 11/17 0200 62 22 127/65 100 OXYGEN 3 11/17 0143 3 11/17 0132 3 11/17 0000 66 20 125/60 100 OXYGEN 11/16 2352 3 11/16 2306 11/16 2200 73 20 121/52 100 OXYGEN 11/16 2147 3 11/16 2120 3 11/16 1950 98.2 81 20 117/51 96 11/16 1942 11/16 1851 11/16 1600 98.2 85 18 119/59 96 OXYGEN 3 11/16 1400 98.0 86 18 136/50 96 OXYGEN 3 11/16 1300 98.0 80 18 144/48 96 OXYGEN 3 11/16 1100 98.4 83 18 95/55 96 OXYGEN 3 11/16 0900 15 11/16 0900 98.6 74 18 90/46 96 15 I&O Past 24 Hrs-ending at 0700 11/17 0700 Intake Total 1020 Output Total Balance 1020 Last VS-Temp:98.2 B/P:102/57 Pulse:75 Resp:22 SaO2:100 OXYGEN Last weight lbs:201 oz:0 K.172 Method:Floor Scales Exam General appearance: alert, awake, no acute distress Cardiovascular: irregularly irregular Respiratory: good air movement, diminished breath sounds (bilateral bases) ABD: normal bowel sounds, soft, no tenderness Extremities: edema (in arms, none in legs) Skin: extensive bruising in arms Assessment/Plan Problem List 1. CO2 narcosis Status: Acute 2. Acute respiratory acidosis Status: Acute 3. COPD exacerbation Status: Acute 4. NSTEMI (non-ST elevated myocardial infarction) Status: Acute 5. Elevated troponin Status: Acute 6. COPD (chronic obstructive pulmonary disease) Status: Chronic 7. HTN (hypertension) Status: Chronic 8. Hyperlipidemia Status: Chronic 9. Renal insufficiency 10. Leukocytosis Status: Acute 11. Anemia Status: Acute This inpt stay is expected to cross 2 MNs from start of care Yes Comments: Patient is slowly improving. Only used Bi-pap for 4 hours in the past 24 hours. WBC count elevated, BUN up to 101, H/H have dropped, still trying to work out details of transfer to [facility]. Antibiotic Stewardship (2) Infxn that will respond? Yes Right drug,dose,and route? Yes More targeted antbx? No at 0844
--- NOTE | 2016-11-19 09:33 | DISCHARGE SUMMARY STANDARD ---
Discharge Summary ([facility]2) Date of admission: 11/09/16 Date of discharge: 11/17/16 Problem List: 1. CO2 narcosis 2. Acute respiratory acidosis 3. COPD exacerbation 4. NSTEMI (non-ST elevated myocardial infarction) 5. Elevated troponin 6. COPD (chronic obstructive pulmonary disease) 7. HTN (hypertension) 8. Hyperlipidemia 9. Renal insufficiency 10. Leukocytosis 11. Anemia History of present illness: Ms. Caro was an 85 year old female who was visiting family in [facility] and came to [facility] ER with difficulty breathing last night. Patient reportedly had COPD and was dependent on supplemental O2. She had been sick for about 2 days with cough and congestion and may have increased the rate of O2 she was receiving. In the ER she was found to have CO2 narcosis and acute respiratory acidosis. She was placed on Bipap and admitted for further evaluation. Exam on admission: General appearance: alert, awake, no acute distress ENT: mucous membranes moist Neck: supple Cardiovascular: regular rate & rhythm Respiratory: diminished breath sounds, wheezing (faint) ABD: normal bowel sounds, soft, no tenderness, obese Skin: warm Hospital Course: By the morning after admission, pt had shown some improvement. She remained on bipap. Her Echo showed moderate mitral regurgitation and moderate pulmonary HTN with LVEF 55%. Cardiology was consulted and felt that EKG changes and elevated troponins were likely secondary to acute respiratory failure. She was to undergo cardiac cath, however, this was put on hold as her sats dropped into the 70%'s when she was laid flat in bed. Pulmonology was consulted. The patient was slow to improve and by 11/13/16, she was still on bipap most of the time and remained in Afib. Dr. Walton considered transfer to and discussed with family. Pt's WBC remained elevated along with BUN and creatinine. Pt continued to improve slowly, was able to maintain sats with venti mask overnight on 11/16/16. By the morning of 11/17/16, there was a bed available at and she was stable to be transferred. Discharge medications: Stop taking the following medications: Diazepam (Diazepam 5MG) 5 MG TABLET ORAL TWICE A DAY THEOPHYLLINE ANHYDROUS (Beni-24) 200 MG CAP.ER.24H ORAL TWICE A DAY Continue taking these medications: Multivitamin W/Iron, Minerals (Spectravite Senior) 1 EACH TABLET 1 EACH ORAL DAILY Montelukast Sodium (Singulair) 10 MG TABLET 10 MILLIGRAM ORAL AT BEDTIME NIGHTLY LISINOPRIL (Lisinopril) 10 MG TABLET 10 MILLIGRAM ORAL DAILY Simvastatin (Simvastatin 40MG Tab) 40 MG TABLET 40 MILLIGRAM ORAL DAILY Disposition: Transferred to [facility]. at 0932
== END 2016-11-17 12:15 | disposition short-term general hospital (02) | DRG 189 ==
LOC: ER 23:57 → 2ND 11-09 01:03
PROVIDERS: Emergency Medicine; Family Medicine
DX: J96.22 Acute and chronic respiratory failure with hypercapnia (principal); Z99.81 Dependence on supplemental oxygen; I48.91 Unspecified atrial fibrillation; J44.9 Chronic obstructive pulmonary disease, unspecified; I10 Essential (primary) hypertension; D64.9 Anemia, unspecified